=== PATIENT | male | born 1955 | race Hispanic/Latino ===

== ENCOUNTER 2019-11-04 08:43 | Emergency (ER) | payer OTHER, SELFPAY ==
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
[2019-11-04 09:04] VITALS: BP 150/96; PULSE 81; RESP 16; TEMP 36.7; O2SAT 81
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
== END 2019-11-04 10:05 | disposition home or self-care (01) ==
PROVIDERS: Emergency Provider Nurse Practitioner
DX: M54.6 Pain in thoracic spine (principal); I10 Essential (primary) hypertension; J45.909 Unspecified asthma, uncomplicated; F17.210 Nicotine dependence, cigarettes, uncomplicated
CPT/HCPCS: 72072; 99213; G0463

== ENCOUNTER 2019-12-17 09:00 | Outpatient (RCR) | payer OTHER, SELFPAY ==
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
--- NOTE | 2019-12-03 10:19 | PCPTNOTE ---
Patient called & cancelled scheduled appointment this date due to no transportation.
--- NOTE | 2019-12-07 08:14 | PCPTNOTE ---
Patient did not show up for scheduled appointment this date. Called and left message regarding no show.
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
== END 2019-12-21 13:15 | disposition home or self-care (01) ==
LOC: ANHPT 09:00
PROVIDERS: PCP Family Medicine; Visit Provider Family Medicine
DX: M79.10 Myalgia, unspecified site (principal)
CPT/HCPCS: 97014; 97110; 97140; 97162; G0283

== ENCOUNTER 2020-07-13 08:27 | Emergency (ER) | payer SELFPAY ==
[2020-07-13] VITALS (11 sets, daily range): BP systolic 119–135; BP diastolic 69–95; PULSE 85–100; RESP 18–34; TEMP 36.6; O2SAT 95–100
--- NOTE | ~2020-07-13 | XR_ITS ---
EXAMINATION: XR chest 1V portable DATE: 07/13/2020 09:22 INDICATION: Shortness of breath. TECHNIQUE: A single frontal view of the chest was obtained. COMPARISON: Thoracic spine radiographs 11/04/2019 FINDINGS: There are lucencies in the lungs, consistent with emphysema. No pneumonia, pleural effusion , pneumothorax. The heart size is normal. IMPRESSION: 1. Emphysema. Reviewed, dictated and finalized at location A. RESOURCE SPECIALIST IMPRESSION: 1. Emphysema.
--- NOTE | 2020-07-13 08:33 | ECG_ITS ---
Measurements Intervals [place] Rate: 96 P: 72 ID: 158 QRS: 66 QRSD: 98 T: 51 QT: 326 QTc: 413 Interpretive Statements SINUS RHYTHM PEAKED T WAVES- CONSIDER HYPERKALEMIA OR ISCHEMIA ABNORMAL ECG Electronically Signed On 07-13-2020 9:59:24 ROOFER APPLICATOR by Rolf Fry D.O.
--- NOTE | 2020-07-13 08:33 | ED.SOB ---
HPI - SOB/Dyspnea General Chief Complaint: Shortness of Breath/Dyspnea Stated Complaint: SOB Source: patient and EMS Mode of arrival: EMS Limitations: no limitations History of Present Illness HPI Narrative: 65 years old male presents with shortness of breath on exertion for the last few days. Patient ran out of his albuterol treatment 2 to 3 days ago, could not get a refill, went to urgent care then referred to our emergency room. Patient denies any fever, chills, nausea, vomiting, chest pain, history of COVID-19 or exposure to anybody with COVID-19. Patient still working and is telling me nobody at work have COVID-19 infection Related Data Home Medications Medication Instructions Recorded Confirmed albuterol sulfate 2 puff INHALATION Q4-6H 11/04/19 11/04/19 carvedilol 25 mg DAILY 11/04/19 11/04/19 clopidogrel 75 mg DAILY 11/04/19 11/04/19 lisinopril 10 mg DAILY 11/04/19 11/04/19 tamsulosin 0.4 mg PO DAILY 11/04/19 11/04/19 umeclidinium [Incruse Ellipta] 2 inh INHALATION DAILY 11/04/19 11/04/19 Allergies Allergy/AdvReac Type Severity Reaction Status Date / Time No Known Allergies Allergy Unknown Verified 03/18/15 17:10 Review of Systems Review of Systems: Narrative: CONSTITUTIONAL: Denies fever, chills, or sweats. EYES: Denies visual changes, redness, or discharge. ENT: Denies rhinorrhea, congestion, sore throat, or otalgia. CARDIOVASCULAR: Denies chest pain, palpitations, or edema. RESPIRATORY: Denies cough or dyspnea. GASTROINTESTINAL: Denies abdominal pain, nausea, vomiting, or diarrhea. GENITOURINARY: Denies dysuria or hematuria. SKIN: Denies rash or itching. MUSCULOSKELETAL: Denies back pain, joint pain, or myalgia. NEUROLOGIC: Denies headache, numbness, or weakness. PSYCHIATRIC: Denies anxiety or depression. [facility] Family History Family History Other Cancer Hypertension Social History Social History Smoking packs per day: 0.25 Smoking cigarettes per day: 5.0 Smoking status: Current every day smoker Alcohol intake: current Drinks per week: 3 Gender identity (if verbalized by the patient): Male Exam Narrative: Exam Narrative: General appearance: Well-developed, well-nourished Skin: Normal color Head: Normocephalic, nontraumatic Eyes: Clear conjunctiva ENT: Oropharynx normal, ears normal, nose normal Neck: Supple, nontender Chest and respiratory: Marked diminution of air entry bilaterally, fine wheezing bilaterally Heart: Regular rate/rhythm Abdomen: Soft, nontender, no organomegaly, quiet bowel sounds Vascular: Normal peripheral pulses, normal capillary refill. Musculoskeletal: Normal range of motion, nontender back Neurologic: Alert and oriented ?3, [employer]ITION [employer] WORKER is normal as tested, no gross motor deficit Course Course Emergency Course: Stable/improving Vital Signs Vital signs: Vital Signs Temperature 36.6 C 07/13/20 08:25 Pulse Rate 100 07/13/20 08:25 Respiratory Rate 20 07/13/20 08:25 Blood Pressure 119/71 07/13/20 08:25 Pulse Oximetry 100 07/13/20 08:25 Temperature 36.6 C 07/13/20 08:25 Pulse Rate 93 07/13/20 09:00 Respiratory Rate 20 07/13/20 09:00 Blood Pressure 119/71 07/13/20 08:25 Pulse Oximetry 100 07/13/20 08:25 MDM - SOB/Dyspnea MDM Narrative Medical decision making narrative: Shortness of breath on exertion, ran out of nebulizer treatment, is still a smoker. Labs, chest x-ray, ABG on room air ordered. Albuterol, Atrovent, Solu-Medrol ordered. Further plan to follow Work-up showed leukocytosis, patient reports a lot of stress lately, the leuko
[2020-07-13] MEDS: ALBUTEROL SULFATE NEB 2.5 MG/0.5 ML INH 5 MG INHALATION (08:50)
[2020-07-13] MEDS: IPRATROPIUM BR 0.02% INH SOLN 0.5 MG/2.5 ML VIAL INHALATION (08:50)
[2020-07-13] MEDS: methylPREDNISolone SOD SUCC 125 MG VIAL IV PUSH (08:51)
[2020-07-13 09:03] LABS: Basophils Absolute Auto 0.1 K/mm3 (0.0-0.1); Basophils Percent Auto 0.3 % (0.2-1.2); Hematocrit 39.3 % (42.0-52.0); Hemoglobin 13.1 g/dL (14.0-18.0); Immature Granulocyte Absolute 0.19 K/mm3 (0.00-0.031); Immature Granulocyte Percent A 0.9 % (0-0.5); Lymphocytes Absolute Auto 1.22 K/mm3 (0.9-3.2); Mean Corpuscular HGB Conc 33.3 g/dl (32-36); Mean Corpuscular Hemoglobin 30.5 pg (26-34); Mean Corpuscular Volume 91.6 fl (80-100); Mean Platelet Volume 9.9 fl (7.4-10.4); Monocytes Absolute Auto 1.7 K/mm3 (0.1-0.6); Monocytes Percent Auto 8.2 % (2.6-8.5); Neutrophils Absolute Auto 17.2 K/mm3 (1.3-6.7); Neutrophils Percent Auto 84.6 % (45.5-73.1); Platelet Count Result 194 k/mm3 (150-375); Red Blood Count 4.29 M/mm3 (4.6-6.20); Red Cell Distribution Width 13.7 % (11.5-14.5); White Blood Count 20.3 K/mm3 (4.5-10.0)
[2020-07-13 09:04] LABS: Alveolar/Arterial O2 Gradient 27.2 mmHg; Base Excess ABG 0.8 mEq/l (+/-2.0); Fractional Inspired Oxygen 21 %; HCO3 ABG 25.5 mEq/l (22.0-26.0); Modified Allen's Test Pass; Oxygen Content ABG 17.9 %vol (16.0-22.0); PCO2 ABG 40.7 mmHg (35.0-45.0); PO2 ABG 73.8 mmHg (80.0-100.0); PO2 FiO2 Ratio Arterial Blood 3.51 %; Site Drawn LEFT RADIAL; Total Hemoglobin 13.7 g/dL (12.0-18.0); pH ABG 7.414 (7.350-7.450)
[2020-07-13 09:05] LABS: Device ROOM AIR
[2020-07-13 09:18] LABS: Alanine Aminotransferase 15 U/L (4-50); Albumin Level 3.8 g/dL (3.5-5.1); Alkaline Phosphatase 91 U/L (38-126); Anion Gap 7 mmol/L (8-16); Aspartate Amino Transferase 21 U/L (17-59); Bilirubin,Total 0.6 mg/dL (0.2-1.3); Blood Urea Nitrogen 17 mg/dL (9-20); Calcium 8.6 mg/dL (8.4-10.2); Carbon Dioxide 26 mmol/L (22-30); Chloride 107 mmol/L (98-107); Estimated CRCL calculation 43 ml/min; Estimated Glomerular Filt Rate > 60; Glucose 119 mg/dL (75-110); Magnesium 2.1 mg/dL (1.6-2.3); Potassium 3.7 mmol/L (3.4-5.0); Sodium 140 mmol/L (137-145)
[2020-07-13 09:30] LABS: NT Pro B Type Natriuretic Pept 261 PG/ML (5-100); Troponin I < 0.012 ng/mL (0.000-0.034)
== END 2020-07-13 10:59 | disposition home or self-care (01) ==
PROVIDERS: Emergency Provider Emergency Medicine
DX: J44.1 Chronic obstructive pulmonary disease with (acute) exacerbation (principal); F17.210 Nicotine dependence, cigarettes, uncomplicated; D72.829 Elevated white blood cell count, unspecified
CPT/HCPCS: 36415; 36600; 71045; 80053; 82805; 83735; 83880; 84484; 85025; 93005; 94640; 96374; 99284; J2930

== ENCOUNTER 2021-03-02 13:02 | Emergency (ER) | payer SELFPAY ==
--- NOTE | 2021-03-02 13:03 | ED.GENADULT ---
HPI - General Adult General Chief complaint: Shortness of Breath/Dyspnea Stated complaint: Inhaler Refill Time Seen by Provider: 03/02/21 13:23 Source: patient and RN notes reviewed Mode of arrival: ambulatory Limitations: no limitations History of Present Illness HPI narrative: 53-[id number]-[age]ry-year-old male presents with concern for asthma medication refill. He reports he is retired, no longer has medical insurance. He reports he has not taken his daily medications for over a year, including medications for blood thinning after having cardiac stents, hypertension, and asthma. Reports he used the last of his albuterol inhaler this morning. Reports his wheezing and shortness of breath symptoms this morning were relieved with the inhaler however his symptoms are starting to return. MD complaint: Medication refill Related Data Home Medications Medication Instructions Recorded Confirmed albuterol sulfate 2 puff INHALATION Q4-6H 11/04/19 11/04/19 carvedilol 25 mg DAILY 11/04/19 11/04/19 lisinopril 10 mg DAILY 11/04/19 11/04/19 tamsulosin 0.4 mg PO DAILY 11/04/19 11/04/19 umeclidinium [Incruse Ellipta] 2 inh INHALATION DAILY 11/04/19 11/04/19 Allergies Allergy/AdvReac Type Severity Reaction Status Date / Time No Known Allergies Allergy Unknown Verified 03/02/21 13:24 Review of Systems Review of Systems: CONSTITUTIONAL: Denies malaise, chills, sweats, or fever. CARDIOVASCULAR: Denies chest pain, palpitations, or edema. RESPIRATORY: Reports cough, wheezing, occasional dyspnea. MUSCULOSKELETAL: Denies myalgia. NEUROLOGIC: Reports occasional headache. All systems reviewed & are unremarkable except as noted in HPI and below [facility] Family History Family History Other Cancer Hypertension Social History Social History Smoking packs per day: 0.25 Smoking cigarettes per day: 5.0 Smoking status: Current every day smoker Alcohol intake: current Drinks per week: 3 Gender identity (if verbalized by the patient): Male Comments At time of signature, agree with nursing past medical, surgical, social and family history. There is no relevant family history pertinent to the presenting complaint Exam Narrative: GENERAL: Well-appearing, well-nourished, and in no acute distress. HEAD: Normocephalic, atraumatic. EYES: PERRLA, sclera clear ENT: Nares clear. Mucous membranes moist. NECK: Supple CHEST: No respiratory distress. Clear to auscultation. Aeration fair. No bony deformities, no asymmetry. Speaks in full sentences. HEART: Regular rate and rhythm. No murmur heard. Normal peripheral pulses. SKIN: Warm, dry, no visible rash. NEURO: Alert and oriented x3. PSYCH: Normal mood and affect Course Course Emergency Course: Discussed with patient importance of finding a primary care doctor to get further refills of his asthma medications as well as his blood thinner and hypertension medications. Offered to give patient an albuterol neb treatment today, due to less than optimal aeration bilaterally, patient refuses treatment today. Reports he will mushroom picker the solution from the pharmacy ended treatment at home. Patient is aware of diagnosis, understands and agrees to treatment plan. Anticipatory guidance given. Patient agrees to follow-up as directed and is aware of reasons to seek care at the emergency department. Portions of this record may have been created with voice recognition software Vital Signs Vital signs: Vital Signs Temperature 97.4 F L 03/02/21 13:10 Pulse Rate 106 H 03/02/21 13:10 Respiratory Rate 16 03/02/21 13:10 Blood Pressure 156/93 H 03/02/21 13:10 Pulse Oximetry 97 03/02/21 13:10 Temperature 97.4 F L 03/02/21 13:10 Pulse Rate 106 H 03/02/21 13:10 Respiratory Rate 16 03/02/21 13:10 Blood Pressure 156/93 H 03/02/21 13:10 Pulse Oximetry 97 03/02/21 13:10 Reviewed. Gosia
[2021-03-02 13:10] VITALS: BP 156/93; PULSE 106; RESP 16; TEMP 36.3; O2SAT 97
== END 2021-03-02 13:36 | disposition home or self-care (01) ==
PROVIDERS: Emergency Provider Nurse Practitioner
DX: Z76.0 Encounter for issue of repeat prescription (principal); F17.210 Nicotine dependence, cigarettes, uncomplicated; Z95.5 Presence of coronary angioplasty implant and graft; I10 Essential (primary) hypertension; J45.909 Unspecified asthma, uncomplicated
CPT/HCPCS: 99211; G0463

== ENCOUNTER 2021-06-25 08:25 | Emergency (ER) | payer MEDICARE, SELFPAY ==
--- NOTE | 2021-06-25 08:28 | ED.URI ---
HPI - URI/Sore Throat General Chief Complaint: Upper Respiratory Infection Stated Complaint: Shortness of Breath Time Seen by Provider: 06/25/21 08:44 Source: patient, RN notes reviewed and old records reviewed Mode of arrival: ambulatory Limitations: no limitations History of Present Illness HPI Narrative: 66-year-old male presents to the [facility] with shortness of breath, left-sided chest pain, hypertension with headache. States he has been out of his medication for a couple of weeks. Tried getting in with [facility] in [place] and reports that they canceled his appointment on him. Has a history of hypertension, emphysema MD elicited complaint: cough Related Data Home Medications Medication Instructions Recorded Confirmed albuterol sulfate 2 puff INHALATION Q4-6H 11/04/19 11/04/19 carvedilol 25 mg DAILY 11/04/19 11/04/19 lisinopril 10 mg DAILY 11/04/19 11/04/19 tamsulosin 0.4 mg PO DAILY 11/04/19 11/04/19 umeclidinium [Incruse Ellipta] 2 inh INHALATION DAILY 11/04/19 11/04/19 Allergies Allergy/AdvReac Type Severity Reaction Status Date / Time No Known Allergies Allergy Unknown Verified 06/25/21 09:23 Review of Systems Review of Systems: All systems reviewed & are unremarkable except as noted in HPI and below Constitutional: Constitutional: Reports no additional constitutional complaints, Denies chills, Denies fever(s) and Denies headache(s) Eyes: Eyes: Reports no additional eye complaints ENT: Reports as per HPI, Denies vertigo, Denies dizziness, Denies headache(s), Denies nasal congestion and Denies sore throat Cardiovascular: Cardiovascular: Reports as per HPI, Reports chest pain, Denies syncope, Denies rapid heart rate and Denies dyspnea Respiratory: Respiratory: Reports no additional respiratory complaints, Denies cough, Reports dyspnea and Reports wheezing Gastrointestinal: Gastrointestinal: Reports no additional gastrointestinal complaints, Denies abdominal pain, Denies diarrhea, Denies nausea and Denies vomiting Musculoskeletal: Musculoskeletal: Reports no additional musculoskeletal complaints and Denies numbness Integumentary/Breasts: Skin/Breast: Reports system reviewed and no additional complaints, except as docu Neurologic: Reports as per HPI, Denies vertigo, Denies dizziness, Denies syncope, Reports headache(s), Denies focal weakness and Denies numbness Psychiatric: Psychiatric: Reports no additional psychiatric complaints Allergic/Immunologic: Allergic/Immunologic: Reports no additional allergic/immunologic complaints and Denies wheezing PMFSH Past Medical History Medical History Asthma Emphysema/COPD HTN (hypertension) PAD (peripheral artery disease) Tobacco abuse Family History Family History Other Cancer Hypertension Social History Social History Smoking packs per day: 0.25 Smoking cigarettes per day: 5.0 Smoking status: Current every day smoker Alcohol intake: current Drinks per week: 3 Gender identity (if verbalized by the patient): Male Comments At the time of my signature, I reviewed and agree with the nursing past medical, surgical, social, and family history. There is no relevant family history pertinent to the patient complaint. Exam Const: General: cooperative, well developed, alert, acute distress moderate and respiratory and ill appearing chronically Nutritional Appearance: well nourished Orientation/consciousness: patient oriented x3 Limitations: no limitations HENMT: Head: normal to inspection Ears: external ears normal Eyes: Conjunctivae: conjunctivae normal Pupils: Equal, round and reactive pupils present Neck: Neck: normal visual inspection, no lymphadenopathy and no meningeal signs Chest: Chest palpation & inspection: normal inspection of the chest Resp: Effort &
[2021-06-25 08:40] VITALS: BP 204/122; PULSE 99; RESP 24; TEMP 36.7; O2SAT 98
[2021-06-25] MEDS: ALBUTEROL SULFATE NEB 2.5 MG/3 ML INH INHALATION (08:45)
[2021-06-25] MEDS: IPRATROPIUM BR 0.02% INH SOLN 0.5 MG/2.5 ML VIAL INHALATION (08:45)
--- NOTE | 2021-06-25 08:51 | ECG_ITS ---
Measurements Intervals [place] Rate: 97 P: 60 DC: 148 QRS: 63 QRSD: 100 T: 50 QT: 355 QTc: 451 Interpretive Statements SINUS RHYTHM BASELINE ARTIFACT- II, III, AVR, AVL, AVF, V1-V2, V4-V6 NORMAL ECG Electronically Signed On 06-25-2021 9:26:35 COTTON FACTOR by Rolf Fry D.O.
== END 2021-06-25 09:00 | disposition short-term general hospital (02) ==
PROVIDERS: Emergency Provider Nurse Practitioner
DX: I10 Essential (primary) hypertension (principal); J45.41 Moderate persistent asthma with (acute) exacerbation; F17.210 Nicotine dependence, cigarettes, uncomplicated; J44.9 Chronic obstructive pulmonary disease, unspecified; I73.9 Peripheral vascular disease, unspecified
CPT/HCPCS: 93005; 94640; 99215; G0463

== ENCOUNTER 2021-06-25 09:17 | Emergency (ER) | payer MEDICARE, SELFPAY ==
[2021-06-25] VITALS (32 sets, daily range): BP systolic 136–215; BP diastolic 86–124; PULSE 66–106; RESP 15–22; TEMP 37; O2SAT 94–100
--- NOTE | ~2021-06-25 | XR_ITS ---
EXAMINATION: XR chest 2V EXAM DATE: 06/25/2021 09:39 INDICATION: Shortness of breath, COUGH, HX: HTN, ASTHMA, COPD TECHNIQUE: Frontal and lateral projections of the chest obtained and reviewed. Comparison is made to prior examination from 07/13/2020. FINDINGS: Moderate chronic hyperinflation. No confluent consolidation, pneumothorax or pleural effus ion suspected. Cardiomediastinal silhouette is normal. There are cholecystectomy clips. IMPRESSION: Hyperinflation. Reviewed, dictated and finalized at location [facility] IMPRESSION: Hyperinflation.
--- NOTE | 2021-06-25 09:24 | ECG_ITS ---
Measurements Intervals [place] Rate: 91 P: 68 KS: 164 QRS: 74 QRSD: 97 T: 73 QT: 352 QTc: 435 Interpretive Statements SINUS RHYTHM NORMAL ECG Electronically Signed On 06-25-2021 9:27:30 MANAGER CASINO by Rolf Fry D.O.
--- NOTE | 2021-06-25 09:28 | ED.GENADULT ---
HPI - General Adult General Chief complaint: Shortness of Breath/Dyspnea Stated complaint: WHEEZING,DIFFICULTY BREATHING Time Seen by Provider: 06/25/21 09:27 History of Present Illness HPI narrative: Patient is a 66-year-old male with history of CAD, COPD, hypertension who comes to the ED today complaining of shortness of breath. Patient reports he has been short of breath for a little over 2 weeks, pretty much ever since he ran out of his home inhalers. He is also been having a frontal headache recently. Has a chronic cough. He denies any fevers, lower extremity edema or any other concerns. He does still smoke cigarettes. Unable to get his medications refilled because of financial constraints. Received a neb treatment in route by EMS and is feeling better. Related Data Home Medications Medication Instructions Recorded Confirmed albuterol sulfate 2 puff INHALATION Q4-6H 11/04/19 11/04/19 carvedilol 25 mg DAILY 11/04/19 11/04/19 lisinopril 10 mg DAILY 11/04/19 11/04/19 tamsulosin 0.4 mg PO DAILY 11/04/19 11/04/19 umeclidinium [Incruse Ellipta] 2 inh INHALATION DAILY 11/04/19 11/04/19 Allergies Allergy/AdvReac Type Severity Reaction Status Date / Time No Known Allergies Allergy Unknown Verified 06/25/21 09:23 Review of Systems Constitutional: Constitutional: Reports as per HPI, Denies fever(s), Denies night sweats and Denies weakness Cardiovascular: Cardiovascular: Denies chest pain, Denies edema, Denies leg edema, Denies dyspnea and Denies orthopnea Respiratory: Respiratory: Reports cough and Reports dyspnea Gastrointestinal: Gastrointestinal: Denies abdominal pain, Denies constipation, Denies diarrhea, Denies nausea and Denies vomiting Musculoskeletal: Musculoskeletal: Denies abnormal gait, Denies back pain, Denies numbness and Denies tingling Neurologic: Denies Abnormal speech present, Denies abnormal gait, Denies numbness, Denies tingling and Denies weakness Psychiatric: Psychiatric: Denies homicidal ideation and Denies suicidal ideation [facility] Past Medical History Medical History Asthma Emphysema/COPD HTN (hypertension) PAD (peripheral artery disease) Tobacco abuse Family History Family History Other Cancer Hypertension Social History Social History Smoking packs per day: 0.25 Smoking cigarettes per day: 5.0 Smoking status: Current every day smoker Alcohol intake: current Drinks per week: 3 Gender identity (if verbalized by the patient): Male Exam Const: General: cooperative, healthy appearing, comfortable, no acute distress, well developed, alert, awake and Physically active Orientation/consciousness: patient oriented x3 Other: Well-appearing, no distress HENMT: Head: normal to inspection, normocephalic and atraumatic Ears: external ears normal General nose exam: Normal external nose present Eyes: Pupils: Equal, round and reactive pupils present EOM: EOMs intact bilaterally Neck: Neck: normal visual inspection Chest: Chest palpation & inspection: normal inspection of the chest and no tenderness Resp: Effort & Inspection: normal respiratory effort and able to speak in complete sentences Auscultation: diminished lung sounds Other: Lung sounds slightly distant throughout. A few scattered wheezes throughout. There is no rhonchi or crackles or rales. Cardio: Rate: regular rate Rhythm: regular rhythm GI: Inspection: normal to inspection GI Palp: No abdominal tenderness : General: Yes no CVA tenderness Back/Spine/Pelvis: Back: no CVA tenderness Skin: General skin exam: normal color and no rashes or lesions noted Lesions: no lesions Neuro: General: patient oriented x3, no focal motor deficits and CN's II-XI intact bilaterally Cranial nerves: Yes Equal, round and reactive pupils present Speech: No Abnormal speech pr
[2021-06-25 09:39] LABS: Basophils Absolute Auto 0.1 K/mm3 (0.0-0.1); Basophils Percent Auto 0.6 % (0.2-1.2); Eosinophils Absolute Auto 0.1 K/mm3 (0-0.3); Eosinophils Percent Auto 1.2 % (0-4.4); Hematocrit 47.3 % (42.0-52.0); Hemoglobin 15.9 g/dL (14.0-18.0); Immature Granulocyte Absolute 0.02 K/mm3 (0.00-0.031); Immature Granulocyte Percent A 0.3 % (0-0.5); Lymphocytes Percent Auto 24.4 % (18.3-44.2); Mean Corpuscular HGB Conc 33.6 g/dl (32-36); Mean Corpuscular Hemoglobin 30.5 pg (26-34); Mean Corpuscular Volume 90.6 fl (80-100); Monocytes Absolute Auto 0.7 K/mm3 (0.1-0.6); Monocytes Percent Auto 9.3 % (2.6-8.5); Neutrophils Percent Auto 64.2 % (45.5-73.1); Platelet Count Result 252 k/mm3 (150-375); Red Blood Count 5.22 M/mm3 (4.6-6.20); Red Cell Distribution Width 12.8 % (11.5-14.5); White Blood Count 7.8 K/mm3 (4.5-10.0)
[2021-06-25 09:49] LABS: Alanine Aminotransferase 21 U/L (4-50); Albumin Level 4.2 g/dL (3.5-5.1); Alkaline Phosphatase 95 U/L (38-126); Anion Gap 9 mmol/L (8-16); Aspartate Amino Transferase 27 U/L (17-59); Bilirubin,Total 0.3 mg/dL (0.2-1.3); Blood Urea Nitrogen 24 mg/dL (9-20); Calcium 9.4 mg/dL (8.4-10.2); Carbon Dioxide 28 mmol/L (22-30); Chloride 104 mmol/L (98-107); Estimated Glomerular Filt Rate > 60; Glucose 101 mg/dL (65-110); Potassium 4.1 mmol/L (3.4-5.0); Sodium 141 mmol/L (137-145)
[2021-06-25] MEDS: ALBUTEROL SULFATE NEB 2.5 MG/3 ML INH 1.25 MG INHALATION (10:24)
[2021-06-25] MEDS: lisinopriL 10 MG TABLET PO (10:33)
[2021-06-25] MEDS: carvediloL 25 MG TABLET PO (10:33)
== END 2021-06-25 13:18 | disposition home or self-care (01) ==
PROVIDERS: Emergency Provider Emergency Medicine
DX: J44.1 Chronic obstructive pulmonary disease with (acute) exacerbation (principal); I25.10 Atherosclerotic heart disease of native coronary artery without angina pectoris; I10 Essential (primary) hypertension; F17.210 Nicotine dependence, cigarettes, uncomplicated; I73.9 Peripheral vascular disease, unspecified
CPT/HCPCS: 36415; 71046; 80053; 85025; 93005; 94640; 96374; 99284; A9270; J2930

== ENCOUNTER 2021-10-29 08:30 | Inpatient (IN) | payer MEDICARE, MEDICAID, SELFPAY ==
[2021-10-29] VITALS (19 sets, daily range): BP systolic 93–168; BP diastolic 38–86; PULSE 71–91; RESP 18–30; TEMP 36.1–37.1; O2SAT 94–99; BMI 25.8
--- NOTE | ~2021-10-29 | CT_ITS ---
EXAMINATION: CT abdomen pelvis wo con DATE: 10/29/2021 11:49 INDICATION: Abdominal pain TECHNIQUE: Computed tomography (CT) of the abdomen and pelvis was performed without intravenous contr ast. Automated exposure control and iterative reconstruction technique were employed. The dose-length product was 344.90 mGy-cm. COMPARISON: None FINDINGS: Multiple small centrilobular nodules with tree-in-bud pattern in both the lingula and left lower lobe consistent with endobronchial spread of disease either aspiration or pneumonia. Heart size is normal . Atherosclerotic coronary artery calcific location. No pericardial or pleural effusion. Cholecystect alejandro clips at the gallbladder fossa and likely dropped clips in the deep pelvis. Liver, spleen, pancre as, bilateral adrenal glands and left kidney are normal. 2.2 cm cyst at the lower pole of the right k idney. There is prominent colonic diverticulosis along the descending and sigmoid colon without adjac ent inflammatory change to suggest diverticulitis. Small bowel and appendix are normal. Prosthetic c alcific lesions. Wall thickening of the decompressed bladder which may relate to decompressed state. No free intraperitoneal gas or fluid. No pathologically enlarged abdominal or pelvic lymphadenopathy. 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 IMPRESSION: 1. Tree-in-bud opacities with multiple small centrilobular nodules at the lingula and left lower lobe which could represent aspiration or pneumonia. 2. Diverticulosis. 3. Wall thickening of the bladder likely due to decompressed state but would correlate with urinalysi s to exclude cystitis. Reviewed, dictated and finalized at location B. IMPRESSION: 1. Tree-in-bud opacities with multiple small centrilobular nodules at the lingu la and left lower lobe which could represent aspiration or pneumonia. 2. Diverticulosis. 3. Wall thickening of the bladder likely due to decompressed state but would co rrelate with urinalysis to exclude cystitis.
--- NOTE | ~2021-10-29 | US_ITS ---
EXAMINATION: US renal BI DATE: 10/29/2021 18:04 INDICATION: renal failure TECHNIQUE: Multiple grayscale and Doppler ultrasound images of the kidneys were obtained. COMPARISON: CT abdomen and pelvis, same date FINDINGS: The right kidney measures 11.8 x 5.8 x 5.9 cm. The left kidney measures 10.2 x 5.8 x 4.4 cm. The kidn eys demonstrate normal parenchymal echogenicity.No sonographic evidence of nephrolithiasis. 2.3 cm si mple cyst in the right kidney inferior pole. No hydronephrosis. The bladder is incompletely distended . IMPRESSION: 1. Normal renal sonogram findings. Reviewed, dictated and finalized at location K.
--- NOTE | ~2021-10-29 | XR_ITS ---
EXAMINATION: XR chest 1V portable 10/29/2021 09:40 INDICATION: Cough and shortness of breath. PROCEDURE: AP portable chest COMPARISON: 06/25/2021 FINDINGS: The lungs are clear. The cardiomediastinal silhouette is within normal limits. There are no pleural effusions. There is no pneumothorax suspected. IMPRESSION: 1: NO ACUTE CARDIOPULMONARY DISEASE. Reviewed, dictated and finalized at location A.
--- NOTE | 2021-10-29 08:40 | ECG_ITS ---
Measurements Intervals [place] Rate: 89 P: 66 [place]: 145 QRS: 67 QRSD: 99 T: 56 QT: 325 QTc: 397 Interpretive Statements SINUS RHYTHM BASELINE ARTIFACT- I, II, III, AVR, AVL, AVF NORMAL ECG Electronically Signed On 10-29-2021 8:55:54 CDT by Rolf Fry D.O.
[2021-10-29] MEDS: methylPREDNISolone SOD SUCC 125 MG VIAL IV PUSH (08:47)
--- NOTE | 2021-10-29 08:52 | ED.SOB ---
HPI - SOB/Dyspnea General Chief Complaint: Shortness of Breath/Dyspnea Stated Complaint: SOB Source: RN notes reviewed History of Present Illness HPI Narrative: Patient presents emergency department from [facility] waiting room via EMS for shortness of breath. Patient states he been progressively worse of breath for the past 1 week. States that he has had a cough has been productive of clear sputum states that he has a history of COPD and is a former smoker he denies any fevers or chills states he does have a tightness across the chest he denies any abdominal pain nausea vomiting or any other symptoms Related Data Home Medications Medication Instructions Recorded Confirmed albuterol sulfate 2 puff INHALATION Q4-6H 11/04/19 11/04/19 carvedilol 25 mg DAILY 11/04/19 11/04/19 lisinopril 10 mg DAILY 11/04/19 11/04/19 tamsulosin 0.4 mg PO DAILY 11/04/19 11/04/19 umeclidinium [Incruse Ellipta] 2 inh INHALATION DAILY 11/04/19 11/04/19 Allergies Allergy/AdvReac Type Severity Reaction Status Date / Time No Known Allergies Allergy Unknown Verified 06/25/21 09:23 Review of Systems Review of Systems: Gen.: Denies fevers or chills ENT: Denies congestion Respiratory: Dry CV: Reports chest tightness GI: Denies abdominal pain nausea, emesis or diarrhea Musculoskeletal: Denies back pain or muscle pain Neuro: Denies numbness, tingling, weakness or focal weakness Skin: Denies rash Except as documented, all other systems reviewed and negative [facility] Past Medical History Medical History Asthma Emphysema/COPD HTN (hypertension) PAD (peripheral artery disease) Tobacco abuse Family History Family History Other Cancer Hypertension Social History Social History Smoking packs per day: 0.25 Smoking cigarettes per day: 5.0 Smoking status: Current every day smoker Alcohol intake: current Drinks per week: 3 Gender identity (if verbalized by the patient): Male Exam Narrative: APPEARANCE: Moderate respiratory distress nontoxic, resting in bed HEENT: Normocephalic, atraumatic OMM RESPIRATORY: Moderate respiratory distress sitting upright speaking in short phrases wheezing throughout bilateral lung roman with decreased breath sounds in the bases CARDIOVASCULAR: Regular rate and rhythm without murmurs rubs or gallops. ABDOMINAL: Soft, nontender, nondistended, no rebound or guarding MUSCULOSKELETAl: Moves all extremities. No clubbing, cyanosis or edema. Bilateral calves soft and nontender NEURO: Awake and alert. Following commands, speech normal, no focal deficits SKIN:: Warm, dry. Normal Color PSYCHIATRIC: Normal affect/mood, Course Course Emergency Course: Following breathing treatment repeat lung exam still shows wheezing throughout bilateral lung roman Discussed with Dr Abad agrees with admission Discussed with patient and family results of workup and diagnosis. Discussed need for admission. Patient and family understand and agree to current treatment plan Vital Signs Vital signs: Vital Signs Temperature 98.8 F 10/29/21 08:35 Pulse Rate 91 10/29/21 08:35 Respiratory Rate 24 H 10/29/21 08:35 Blood Pressure 117/75 10/29/21 08:35 Pulse Oximetry 96 10/29/21 08:35 Temperature 98.8 F 10/29/21 08:35 Pulse Rate 73 10/29/21 12:01 Respiratory Rate 18 10/29/21 12:01 Blood Pressure 93/54 L 10/29/21 12:01 Pulse Oximetry 99 10/29/21 12:01 MDM - SOB/Dyspnea Lab Data Result diagrams: 10/29/21 08:54 10/29/21 08:54 Labs: Lab Results 10/29/21 10/29/21 10/29/21 Range/Units 08:48 08:54 08:54 WBC 19.8 H (4.5-10.0) K/mm3 RBC 4.80 (4.6-6.20) M/mm3 Hgb 14.6 (14.0-18.0) g/dL Hct 44.0 (42.0-52.0) % MCV 91.7 (80-100) fl MCH 30.4 (26-34) pg MCHC 33.2 (32-36) g/dl RDW
[2021-10-29 09:00] LABS: Basophils Absolute Auto 0.1 K/mm3 (0.0-0.1); Basophils Percent Auto 0.4 % (0.2-1.2); Hemoglobin 14.6 g/dL (14.0-18.0); Immature Granulocyte Absolute 0.15 K/mm3 (0.00-0.031); Immature Granulocyte Percent A 0.8 % (0-0.5); Lymphocytes Absolute Auto 0.86 K/mm3 (0.9-3.2); Lymphocytes Percent Auto 4.3 % (18.3-44.2); Mean Corpuscular HGB Conc 33.2 g/dl (32-36); Mean Corpuscular Hemoglobin 30.4 pg (26-34); Mean Corpuscular Volume 91.7 fl (80-100); Mean Platelet Volume 9.6 fl (7.4-10.4); Monocytes Absolute Auto 1.8 K/mm3 (0.1-0.6); Monocytes Percent Auto 8.9 % (2.6-8.5); Neutrophils Percent Auto 85.6 % (45.5-73.1); Platelet Count Result 252 k/mm3 (150-375); Red Cell Distribution Width 13.9 % (11.5-14.5); White Blood Count 19.8 K/mm3 (4.5-10.0)
[2021-10-29] MEDS: IPRATROPIUM BR 0.02% INH SOLN 0.5 MG/2.5 ML VIAL INHALATION ×2 (09:00→20:19)
[2021-10-29] MEDS: ALBUTEROL SULFATE NEB 2.5 MG/3 ML INH 5 MG INHALATION ×3 (09:00→20:19)
[2021-10-29 09:14] LABS: Alanine Aminotransferase 16 U/L (6-50); Alkaline Phosphatase 97 U/L (38-126); Anion Gap 9 mmol/L (8-16); Aspartate Amino Transferase 26 U/L (17-59); Bilirubin,Total 0.8 mg/dL (0.2-1.3); Blood Urea Nitrogen 21 mg/dL (9-20); Calcium 8.9 mg/dL (8.4-10.2); Carbon Dioxide 24 mmol/L (22-30); Chloride 103 mmol/L (98-107); Estimated CRCL calculation 35 ml/min; Estimated Glomerular Filt Rate 44; Glucose 132 mg/dL (65-110); Lactic Acid Reflex 1.4 mmol/L (0.7-2.0); Potassium 4.4 mmol/L (3.4-5.0); Sodium 136 mmol/L (137-145)
[2021-10-29 09:17] LABS: INR 1.2; Prothrombin Time 14.7 Seconds (11.1-14.7)
[2021-10-29 09:17] LABS: Base Excess ABG -3.4 mEq/l (+/-2.0); Carboxyhemoglobin 0.7 % THb (0-2.0); Fractional Inspired Oxygen 21 %; HCO3 ABG 20.1 mEq/l (22.0-26.0); Methemoglobin ABG 0.1 %THb (0-1.5); Oxygen Content ABG 18.3 %vol (16.0-22.0); Oxygen Saturation ABG 93.8 % (95.0-100.0); Oxyhemoglobin 92.9 % THb (90.0-100.0); PCO2 ABG 31.7 mmHg (35.0-45.0); PO2 ABG 66.8 mmHg (80.0-100.0); PO2 FiO2 Ratio Arterial Blood 3.18 %; Reduced Hemoglobin 6.3 %THb (0-5.0); pH ABG 7.419 (7.350-7.450)
[2021-10-29 09:25] LABS: NT Pro B Type Natriuretic Pept 419 pg/mL (5-100); Troponin I < 0.012 ng/mL (0.000-0.034)
[2021-10-29 09:29] LABS: SARS-CoV-2 RNA PCR Negative
[2021-10-29 11:17] LABS: Appearance Urine Cloudy (Clear); Bilirubin Urine 1+ (Negative); Glucose Urine UA Negative (Negative); Ketones Urine Trace mg/dL (Negative); Leukocyte Esterase Ur Trace LEU/UL (Negative); Nitrate Urine Negative (Negative); Protein Urine 2+ mg/dL (Negative); Specific Grav Ur 1.025 (1.001-1.035)
[2021-10-29 11:18] LABS: Add Urine Microscopic? YES; Blood Urine Trace-Intact (Negative); Color Urine Dark Yellow (Yellow)
[2021-10-29 11:21] LABS: Bacteria Urine 4+ /hpf; Mucus Urine Heavy /lpf; Squamous Epithelial Cell Urine Rare /hpf (Few); WBC Urine 31-50 /hpf
[2021-10-29] MEDS: SODIUM CHLORIDE 0.9% IV 1,000 ML 999 ML IV CONT (11:37)
[2021-10-29] MEDS: SODIUM CHLORIDE 0.9% IV 1,000 ML 80 ML IV CONT ×2 (13:04→23:39)
[2021-10-29] MEDS: methylPREDNISolone SOD SUCC 125 MG VIAL 60 MG IV PUSH ×3 (14:14→23:40)
--- NOTE | 2021-10-29 14:45 | PM.IMHP ---
H&P: HPI History of Present Illness Date/Time: 10/29/21 14:45 Chief Complaint: Shortness of breath. Narrative: This is a pleasant 66-year-old male smoker with coronary artery disease, hypertension, and chronic obstructive pulmonary disease who presented to the emergency department via EMS from his doctor's office for evaluation of shortness of breath. He and several family members have had URI symptoms for the past 1 week. Over the past 2 days he has felt increasingly worse with headache, cough productive of white phlegm, decreased appetite, nausea, a couple of loose stools, and sweats. He has been coughing so hard that he has having pain in his chest and he has had several episodes of post-tussive emesis due to coughing jags. He has not been using any [id number] medication. He does have a nebulizer machine at home however has been out of the vials and was not able to give himself a treatment despite significant wheezing. He has gotten progressively more dyspneic on lesser and lesser exertion and he was seen by his doctor today who sent him to the ER for further treatment and evaluation. He has been afebrile since arrival. White blood cell count was elevated at 19.8. Chest x-ray showed no acute cardiopulmonary disease. CT of the abdomen pelvis showed findings in the lingula and left lower lobe which could represent aspiration or pneumonia and thickening of the bladder wall was also noted. With further questioning, he denies dysphagia and concerns for aspiration. He denies urinary symptoms though he has occasionally coughs so hard that he had a small amount of leakage. He denies fever, sore throat, exertional chest pain, pleuritic pain, dysuria, orthopnea, PND, and edema. Review of Systems Review of Systems: Twelve systems were reviewed and are negative except for as per HPI. [facility] Past Medical History Medical History (Updated 10/29/21 @ 23:12 by Aide Vela PA-C) Asthma Congestive heart failure Coronary artery disease Dyslipidemia Emphysema/COPD Gastroesophageal reflux disease Hypertension Tobacco abuse Surgical History Surgical History (Updated 10/29/21 @ 16:12 by Aide Vela PA-C) History of cardiac catheterization History of cholecystectomy History of coronary artery stent placement Family History Family History Other Cancer Hypertension Social History Social History (Updated 10/29/21 @ 16:13 by Aide Vela PA-C) Social History: Surrogate decision maker: Fadia Hirsch, spouse. Code status: Full code. Smoking packs per day: 0.25 Smoking cigarettes per day: 5.0 Smoking status: Current every day smoker Tobacco type: cigarettes Alcohol intake: current Drinks per week: 3 Substance use: never Living arrangements: with family Occupation/Education: retired Spiritual care concerns: No Meds Home Medications and Allergies Home Medications Medication Instructions Recorded Confirmed Type albuterol sulfate 2 puff INHALATION Q4-6H 11/04/19 10/29/21 History carvedilol 25 mg DAILY 11/04/19 10/29/21 History lisinopril 10 mg DAILY 11/04/19 10/29/21 History tamsulosin 0.4 mg PO DAILY 11/04/19 10/29/21 History umeclidinium [Incruse Ellipta] 2 inh INHALATION DAILY 11/04/19 10/29/21 History ipratropium-albuterol 3 ml INHALATION Q6H PRN #180 ml 06/25/21 10/29/21 Rx prednisone 50 mg PO DAILY #5 tablet 06/25/21 10/29/21 Rx Allergies Allergy/AdvReac Type Severity Reaction Status Date / Time No Known Allergies Allergy Unknown Verified 06/25/21 09:23 Vital Signs Vital Signs - 24 hr 10/29/21 08:35 10/29/21 08:40 10/29/21 08:59 Temperature 98.8 F Pulse Rate 91 89 88 Respiratory Rate 24 H 26 H Blood Pressure 117/75 Pulse Oximetry 96 10/29/21 09:15 10/29/21 09:26 10/29/21 09:38 Temperature Pulse Rate 88 76 79 Respiratory Rate 26 H 30 H 20 Blood Pressure 117/75 Pulse Oximetry 99
[2021-10-29] MEDS: guaiFENesin 600 MG/DEXTROMETHORPHAN 30 MG SR TAB 12 HR 1 TAB PO (23:39)
[2021-10-30] VITALS (18 sets, daily range): BP systolic 132–182; BP diastolic 57–87; PULSE 66–95; RESP 18–24; TEMP 35.7–36.8; O2SAT 93–97
[2021-10-30] MEDS: IPRATROPIUM BR 0.02% INH SOLN 0.5 MG/2.5 ML VIAL INHALATION ×4 (01:37→20:38)
[2021-10-30] MEDS: ALBUTEROL SULFATE NEB 2.5 MG/3 ML INH 5 MG INHALATION ×3 (01:37→20:38)
[2021-10-30] MEDS: methylPREDNISolone SOD SUCC 125 MG VIAL 60 MG IV PUSH ×4 (06:05→23:36)
[2021-10-30 06:27] LABS: Alanine Aminotransferase 15 U/L (6-50); Albumin Level 3.2 g/dL (3.5-5.1); Alkaline Phosphatase 81 U/L (38-126); Anion Gap 7 mmol/L (8-16); Aspartate Amino Transferase 21 U/L (17-59); Bilirubin,Total 0.2 mg/dL (0.2-1.3); Blood Urea Nitrogen 28 mg/dL (9-20); Calcium 8.1 mg/dL (8.4-10.2); Carbon Dioxide 18 mmol/L (22-30); Chloride 110 mmol/L (98-107); Estimated CRCL calculation 42 ml/min; Estimated Glomerular Filt Rate 55; Glucose 158 mg/dL (65-110); Magnesium 2.2 mg/dL (1.6-2.3); Potassium 4.1 mmol/L (3.4-5.0); Sodium 135 mmol/L (137-145)
[2021-10-30 06:41] LABS: Basophils Percent Auto 0.1 % (0.2-1.2); Hematocrit 37.2 % (42.0-52.0); Hemoglobin 12.5 g/dL (14.0-18.0); Immature Granulocyte Absolute 0.15 K/mm3 (0.00-0.031); Immature Granulocyte Percent A 0.7 % (0-0.5); Lymphocytes Absolute Auto 0.71 K/mm3 (0.9-3.2); Lymphocytes Percent Auto 3.5 % (18.3-44.2); Mean Corpuscular HGB Conc 33.6 g/dl (32-36); Mean Corpuscular Hemoglobin 30.9 pg (26-34); Mean Corpuscular Volume 91.9 fl (80-100); Mean Platelet Volume 10.2 fl (7.4-10.4); Monocytes Absolute Auto 0.3 K/mm3 (0.1-0.6); Monocytes Percent Auto 1.7 % (2.6-8.5); Neutrophils Absolute Auto 18.9 K/mm3 (1.3-6.7); Platelet Count Result 233 k/mm3 (150-375); Red Blood Count 4.05 M/mm3 (4.6-6.20); Red Cell Distribution Width 13.9 % (11.5-14.5); White Blood Count 20.1 K/mm3 (4.5-10.0)
[2021-10-30 07:36] LABS: Device ROOM AIR; Modified Allen's Test Pass; Site Drawn RIGHT RADIAL
[2021-10-30] MEDS: ENOXAPARIN 40 MG/0.4 ML SYRINGE SUB-Q (08:38)
[2021-10-30] MEDS: guaiFENesin 600 MG/DEXTROMETHORPHAN 30 MG SR TAB 12 HR 1 TAB PO (08:38)
[2021-10-30] MEDS: carvediloL 25 MG TABLET BY MOUTH (08:39)
[2021-10-30] MEDS: TAMSULOSIN HCL 0.4 MG CAPSULE PO (08:39)
[2021-10-30] MEDS: ALBUTEROL SULFATE NEB 2.5 MG/0.5 ML INH 5 MG (09:30)
--- NOTE | 2021-10-30 09:51 | PM.IMPN ---
Progress Note: A&P Assessment and Plan (1) Community acquired pneumonia: Code(s): J18.9 - Pneumonia, unspecified organism Status: Acute Assessment and Plan: Monitor vital signs, I&Os, neuro status and patient is a fall risk Follow WBC, serum electrolytes, temperature curves and cultures Send sputum cultures. Check urinary antigens for Legionella and pneumococcus. Oxygen via NC; wean as tolerated. Keep SpO2 greater than 88% Gentle IV fluid resuscitation Continue levofloxacin started the emergency department. Start incentive spirometry and Cornet therapy Add Mucinex DuoNeb q6H and Albuterol q2H PRN P.r.n. Tylenol, Zofran, and melatonin (2) COPD exacerbation: Code(s): J44.1 - Chronic obstructive pulmonary disease with (acute) exacerbation Status: Acute Assessment and Plan: Monitor vital signs, I&Os, neuro status and patient is a fall risk Monitor serum electrolytes, cultures and CBC Monitor Oxygen saturation, Oxygen via NC; wean oxygen as tolerated, keep SpO2 greater than 88% Send sputum cultures if possible Levaquin q24H Duonebz q6H and Albuterol q2H prn Solu-Medrol 40 mg IVq12H (3) Renal insufficiency: Code(s): N28.9 - Disorder of kidney and ureter, unspecified Status: Acute Assessment and Plan: Creatinine is 1.60 today, baseline is around 1.10. Judicious IV fluid rehydration overnight. Renal ultrasound ordered and is pending. Avoid nephrotoxic agents. (4) Abnormal urinalysis: Code(s): R82.90 - Unspecified abnormal findings in urine Status: Acute Assessment and Plan: No symptoms to suggest UTI. Urine culture pending. (5) Hypertension: Code(s): I10 - Essential (primary) hypertension Status: Acute Assessment and Plan: Blood pressures were reviewed and are stable aside from a transient low of 93/54 in the ER. Check orthostatic vital signs and monitor closely. Antihypertensives will be reviewed and resumed as appropriate. (6) Tobacco abuse: Code(s): Z72.0 - Tobacco use Status: Acute Assessment and Plan: Smoking cessation counseling provided 3 minutes . He declines the need for nicotine patch. Subjective Date/time seen: 10/30/21 09:51 Interval history: S patient is alert and oriented sitting at the side of the bed. She he reports that he will be returning to [place] next month and will require additional medications when he goes and he would like to have his respiratory status further evaluated. Patient is currently being treated for community-acquired pneumonia and COPD exacerbation. He has inspiratory and expiratory wheezes throughout bilaterally. With an elevated WBC of 20.1. He will continue on Levaquin and breathing treatments. Pending sputum cultures. He denies any acute pain, chest pain, nausea, vomiting upset stomach or diarrhea. He does endorse shortness breath with tightness. Review of Systems Review of Systems: All systems reviewed & are unremarkable except as noted in HPI and below Exam Narrative: General: Well-developed male sitting in a chair in no acute distress. Weight: 68.3 kg. BMI: 25.8. HEENT: Wearing glasses. PERRL, EOMI. Sclerae anicteric. Oral mucosa moist. Neck: Supple. No lymphadenopathy or JVD. Respiratory: Mild conversational dyspnea though he appears in no acute respiratory distress. He is speaking in 5 to 6 word sentences. Significantly diminished lung sounds throughout with inspiratory and expiratory wheezes Cardiovascular: Regular rate and rhythm with S1-S2. Gastrointestinal: Abdomen is soft, nontender, and nondistended with positive bowel sounds. Skin: Warm and dry. No rash or lesions on limited exam. Extremities: No cyanosis, clubbing, or edema. Radial and pedal pulses intact. Neurological: Alert. Cranial nerves 2-12 are grossly intact. No gross focal deficits to casual conversation. Psychiatric: Pleasant and cooperative with yarelis
[2021-10-30] MEDS: ACETAMINOPHEN 325 MG TABLET 650 MG PO (21:09)
[2021-10-30] MEDS: guaiFENesin/CODEINE (*CRX) 200/20 MG 10 ML SYRUP PO (21:09)
[2021-10-31] VITALS (19 sets, daily range): BP systolic 155–192; BP diastolic 84–102; PULSE 71–91; RESP 16–20; TEMP 35.9–36.8; O2SAT 91–98
[2021-10-31] MEDS: ALBUTEROL SULFATE NEB 2.5 MG/3 ML INH 5 MG INHALATION ×4 (02:49→21:03)
[2021-10-31] MEDS: IPRATROPIUM BR 0.02% INH SOLN 0.5 MG/2.5 ML VIAL INHALATION ×4 (02:49→21:03)
[2021-10-31] MEDS: methylPREDNISolone SOD SUCC 125 MG VIAL 60 MG IV PUSH (05:36)
[2021-10-31] MEDS: guaiFENesin/CODEINE (*CRX) 200/20 MG 10 ML SYRUP PO ×4 (05:49→21:56)
[2021-10-31] MEDS: hydrALAZINE HCL 20 MG/ML VIAL 10 MG IV PUSH ×3 (06:30→20:23)
[2021-10-31] MEDS: carvediloL 25 MG TABLET BY MOUTH (08:35)
[2021-10-31] MEDS: ENOXAPARIN 40 MG/0.4 ML SYRINGE SUB-Q (08:35)
[2021-10-31] MEDS: TAMSULOSIN HCL 0.4 MG CAPSULE PO (08:35)
--- NOTE | 2021-10-31 10:56 | P.PNIM_ITS ---
Progress Note: A&P Assessment and Plan (1) Community acquired pneumonia: Code(s): J18.9 - Pneumonia, unspecified organism <Sudha SteffSHELLEY Villeda-C - Last Filed: 10/31/21 11:09> Status: Acute <Sudha Valleshanon PA-C - Last Filed: 10/31/21 11:09> Assessment and Plan: CXR showed no acute cardiopulmonary findings, however CT abdomen/pelvis showed tree-in-bud opacities with multiple small centrilobular nodules at the lingula and left lower lobe * Continue levofloxacin * COVID-19 negative. Influenza pending. Urinary Legionella pneumococcal antigens pending * Supportive care. Bronchodilators, expectorants, incentive spirometry, cornet * Sputum cultures pending * Currently maintaining adequate oxygen saturations on room air <Sudha Aguilar PA-C - Last Filed: 10/31/21 11:09> (2) COPD exacerbation: Code(s): J44.1 - Chronic obstructive pulmonary disease with (acute) exacerbation <Sudha Aguilar PA-C - Last Filed: 10/31/21 11:09> Status: Acute <Sudha SteffTrace Aguilar PA-C - Last Filed: 10/31/21 11:09> Assessment and Plan: Patient with evidence of exacerbation on upon presentation * Improved following IV steroids * Weaned Solu-Medrol to 40 mg q8h. Continue to wean as tolerated * Leukocytosis secondary to IV steroids noted. * Continue DuoNebs * Continue home Incruse Ellipta <Sudha Aguilar PA-C - Last Filed: 10/31/21 11:09> (3) UTI (urinary tract infection): Code(s): N39.0 - Urinary tract infection, site not specified <Sudha Aguilar PA-C - Last Filed: 10/31/21 11:09> Status: Acute <Sudha Aguilar PA-C - Last Filed: 10/31/21 11:09> Assessment and Plan: UA abnormal on presentation. Urine culture with growth of >100k E coli * Continue IV Levaquin based on susceptibility report <Sudha Aguilar PA-C - Last Filed: 10/31/21 11:09> (4) Renal insufficiency: Code(s): N28.9 - Disorder of kidney and ureter, unspecified <Sudha ArtisTrace Aguilar PA-C - Last Filed: 10/31/21 11:09> Status: Acute <Sudha ValleJOHN claudioC - Last Filed: 10/31/21 11:09> Assessment and Plan: Improved. Baseline creatinine appears to be around 1.1 * Creatinine 1.3 today * Renal ultrasound showed normal kidneys with no acute findings * Improved with IV fluid rehydration. Patient tolerating p.o. intake at this time. Encourage adequate oral intake * Monitor BMP <Sudha ArtisTrace Aguilar PA-C - Last Filed: 10/31/21 11:09> (5) Hypertension: Code(s): I10 - Essential (primary) hypertension <Sudha ArtisJOHN VilledaC - Last Filed: 10/31/21 11:09> Status: Acute <Sudha JTrace Aguilar PA-C - Last Filed: 10/31/21 11:09> Assessment and Plan: Blood pressures reviewed and have been slightly elevated above target. He did have 1 transient episode of low BP on presentation. Last blood pressure 189/91 * Continue carvedilol * Hold lisinopril due to renal insufficiency. Plan to resume when creatinine has returned to baseline * P.r.n. hydralazine for systolic BP >170 * Monitor BP trends and adjust medication regimen as needed <Sudha Aguilar PA-C - Last Filed: 10/31/21 11:09> (6) Tobacco abuse: Code(s): Z72.0 - Tobacco use <Sudha Aguilar PA-C - Last Filed: 10/31/21 11:09> Status: Acute <Sudha ArtisTrace Aguilar PA-C - Last Filed: 10/31/21 11:09> Assessment and Plan: Patient smokes a quarter pack per day * He has been educated on smoking cessation * Declined nicotine patch <Sudha Aguilar PA-C - Last Filed: 10/31/21 11:09> [place]
--- NOTE | 2021-10-31 10:56 | PM.IMPN ---
Progress Note: A&P Assessment and Plan (1) Community acquired pneumonia: Code(s): J18.9 - Pneumonia, unspecified organism <Sudha ArtisTrace Leonardshanon PA-C - Last Filed: 10/31/21 11:09> Status: Acute <Sudha Valleshanon, PA-C - Last Filed: 10/31/21 11:09> Assessment and Plan: CXR showed no acute cardiopulmonary findings, however CT abdomen/pelvis showed tree-in-bud opacities with multiple small centrilobular nodules at the lingula and left lower lobe Continue levofloxacin COVID-19 negative. Influenza pending. Urinary Legionella pneumococcal antigens pending Supportive care. Bronchodilators, expectorants, incentive spirometry, cornet Sputum cultures pending Currently maintaining adequate oxygen saturations on room air <Sudha SteffTrace Aguilar PA-C - Last Filed: 10/31/21 11:09> (2) COPD exacerbation: Code(s): J44.1 - Chronic obstructive pulmonary disease with (acute) exacerbation <Sudha JTrace Aguilar, PA-C - Last Filed: 10/31/21 11:09> Status: Acute <Sudha ArtisTarce Leonardshanon, PA-C - Last Filed: 10/31/21 11:09> Assessment and Plan: Patient with evidence of exacerbation on upon presentation Improved following IV steroids Weaned Solu-Medrol to 40 mg q8h. Continue to wean as tolerated Leukocytosis secondary to IV steroids noted. Continue DuoNebs Continue home Incruse Ellipta <Sudha JTrace Aguilar, PA-C - Last Filed: 10/31/21 11:09> (3) UTI (urinary tract infection): Code(s): N39.0 - Urinary tract infection, site not specified <Sudha SteffTrace Aguilar, PA-C - Last Filed: 10/31/21 11:09> Status: Acute <Sudha SteffTrace Aguilar, PA-C - Last Filed: 10/31/21 11:09> Assessment and Plan: UA abnormal on presentation. Urine culture with growth of >100k E coli Continue IV Levaquin based on susceptibility report <Sudha Aguilar, PA-C - Last Filed: 10/31/21 11:09> (4) Renal insufficiency: Code(s): N28.9 - Disorder of kidney and ureter, unspecified <Sudha Aguilar PA-C - Last Filed: 10/31/21 11:09> Status: Acute <Sudha Aguilar PA-C - Last Filed: 10/31/21 11:09> Assessment and Plan: Improved. Baseline creatinine appears to be around 1.1 Creatinine 1.3 today Renal ultrasound showed normal kidneys with no acute findings Improved with IV fluid rehydration. Patient tolerating p.o. intake at this time. Encourage adequate oral intake Monitor BMP <Sudha Aguilar PA-C - Last Filed: 10/31/21 11:09> (5) Hypertension: Code(s): I10 - Essential (primary) hypertension <Sudha Aguilar PA-C - Last Filed: 10/31/21 11:09> Status: Acute <Sudha Aguilar PA-C - Last Filed: 10/31/21 11:09> Assessment and Plan: Blood pressures reviewed and have been slightly elevated above target. He did have 1 transient episode of low BP on presentation. Last blood pressure 189/91 Continue carvedilol Hold lisinopril due to renal insufficiency. Plan to resume when creatinine has returned to baseline P.r.n. hydralazine for systolic BP >170 Monitor BP trends and adjust medication regimen as needed <Sudha Aguilar PA-C - Last Filed: 10/31/21 11:09> (6) Tobacco abuse: Code(s): Z72.0 - Tobacco use <Sudha Aguilar PA-C - Last Filed: 10/31/21 11:09> Status: Acute <Sudha Aguilar PA-C - Last Filed: 10/31/21 11:09> Assessment and Plan: Patient smokes a quarter pack per day He has been educated on smoking cessation Declined nicotine patch <Sudha Aguilar PA-C - Last Filed: 10/31/21 11:09> Subjective Date/time seen: 10/31/21 10:56 <Sudha Aguilra PA-C - Last Filed: 10/31/21 11:09> Interval history: Date of service: 10/31/2021 Karthik Mars is a 66-year-old male with a history of CHF Mariano was CAD, COPD, asthma, hypertension, hyperlipidemia, GERD, and tobacco abuse who is seated follow-up for pneumonia and COPD exacerbation. He states that he
--- NOTE | 2021-10-31 12:55 | P.CDI_ITS ---
CDI Query Clarification Request 10/29 ER physician documented: Clinical Impression: -?COPD exacerbation, Acute renal insufficiency, Sepsis, Acute UTI, Community acquired pneumonia 10/31 Hospitalist documented: UTI (urinary tract infection): ?Code(s): N39.0 - Urinary tract infection, site not specified ?Status:?Acute ?Assessment and Plan: UA abnormal on presentation.? Urine culture with growth of >100k E coli * Continue IV Levaquin based on susceptibility report Lab/Vital sign results: Diagnosis UTI, WBC 19.8, Respiration 24, Pulse 91-95 Please clarify if diagnosis: Sepsis, has been ruled in, ruled out or undetermined
[2021-10-31] MEDS: methylPREDNISolone SOD SUCC 40 MG VIAL IV PUSH ×2 (15:18→22:42)
[2021-10-31] MEDS: CALCIUM CARBONATE (TUMS) 500 MG (200 MG ELEMENTAL) PO (21:56)
[2021-11-01] VITALS (8 sets, daily range): BP systolic 152–178; BP diastolic 83–86; PULSE 66–100; RESP 16–18; TEMP 36.4–36.5; O2SAT 95–97
[2021-11-01] MEDS: IPRATROPIUM BR 0.02% INH SOLN 0.5 MG/2.5 ML VIAL INHALATION ×2 (02:02→08:12)
[2021-11-01] MEDS: ALBUTEROL SULFATE NEB 2.5 MG/3 ML INH 5 MG INHALATION ×2 (02:02→08:12)
[2021-11-01 06:19] LABS: Hematocrit 39.3 % (42.0-52.0); Mean Corpuscular HGB Conc 33.1 g/dl (32-36); Mean Corpuscular Hemoglobin 30.2 pg (26-34); Mean Corpuscular Volume 91.4 fl (80-100); Mean Platelet Volume 9.5 fl (7.4-10.4); Platelet Count Result 270 k/mm3 (150-375); Red Cell Distribution Width 14.3 % (11.5-14.5); White Blood Count 15.7 K/mm3 (4.5-10.0)
[2021-11-01] MEDS: guaiFENesin/CODEINE (*CRX) 200/20 MG 10 ML SYRUP PO ×2 (06:30→11:22)
[2021-11-01] MEDS: methylPREDNISolone SOD SUCC 40 MG VIAL IV PUSH (06:30)
[2021-11-01 06:36] LABS: Anion Gap 4 mmol/L (8-16); Blood Urea Nitrogen 27 mg/dL (9-20); Calcium 8.2 mg/dL (8.4-10.2); Carbon Dioxide 26 mmol/L (22-30); Chloride 108 mmol/L (98-107); Estimated CRCL calculation 46 ml/min; Estimated Glomerular Filt Rate > 60; Glucose 118 mg/dL (65-110); Potassium 4.8 mmol/L (3.4-5.0); Sodium 138 mmol/L (137-145)
[2021-11-01] MEDS: ENOXAPARIN 40 MG/0.4 ML SYRINGE SUB-Q (08:05)
[2021-11-01] MEDS: carvediloL 25 MG TABLET BY MOUTH (08:05)
[2021-11-01] MEDS: TAMSULOSIN HCL 0.4 MG CAPSULE PO (08:05)
--- NOTE | 2021-11-01 09:44 | P.DS_ITS ---
DS: Admitting Diagnosis Discharge Date 11/01/2021 <Sudha Aguilar PA-C - Last Filed: 11/01/21 16:09> Admitting Diagnosis COPD exacerbation <Sudha Aguilar PA-C - Last Filed: 11/01/21 16:09> DS: Discharge Diagnosis Discharge Diagnosis (1) Community acquired pneumonia: Code(s): J18.9 - Pneumonia, unspecified organism <Sudha Aguilar PA-C - Last Filed: 11/01/21 16:09> Status: Acute <JOHN AstorgaC - Last Filed: 11/01/21 16:09> Assessment and Plan: CXR showed no acute cardiopulmonary findings, however CT abdomen/pelvis showed tree-in-bud opacities with multiple small centrilobular nodules at the lingula and left lower lobe * Managed with IV Levaquin. Will continue p.o. Levaquin to complete 7 days * COVID-19 negative. Influenza negative. Urinary Legionella and pneumococcal antigens pending and will be monitored. * Supportive care. Bronchodilators, expectorants, incentive spirometry, cornet provided. * Sputum cultures with growth of normal oropharyngeal emir * No supplemental O2 required <Sudha Aguilar PA-C - Last Filed: 11/01/21 16:09> (2) COPD exacerbation: Code(s): J44.1 - Chronic obstructive pulmonary disease with (acute) exacerbation <Sudha Aguilar PA-C - Last Filed: 11/01/21 16:09> Status: Acute <Sudha Aguilar PA-C - Last Filed: 11/01/21 16:09> Assessment and Plan: Patient with evidence of exacerbation on upon presentation * Improved following IV steroids and will continue p.o. prednisone on discharge. 40 mg p.o. for 5 days * Continue DuoNebs as needed for SOB/wheezing. Prescribed nebulizer on discharge. * Continue home Incruse Ellipta and Symbicort <Sudha Aguilar PA-C - Last Filed: 11/01/21 16:09> (3) UTI (urinary tract infection): Code(s): N39.0 - Urinary tract infection, site not specified <Sudha Aguilar PA-C - Last Filed: 11/01/21 16:09> Status: Acute <Sudha JJOHN VilledaC - Last Filed: 11/01/21 16:09> Assessment and Plan: UA abnormal on presentation. Urine culture with growth of >100k E coli * Continue Levaquin based on susceptibility. <Sudha Aguilar PA-C - Last Filed: 11/01/21 16:09> (4) Renal insufficiency: Code(s): N28.9 - Disorder of kidney and ureter, unspecified <JOHN AstorgaC - Last Filed: 11/01/21 16:09> Status: Acute <Sudha Aguilar PA-C - Last Filed: 11/01/21 16:09> Assessment and Plan: Improved. Baseline creatinine appears to be around 1.1 * Creatinine elevated up to 1.6 on presentation. * Renal function improved with gentle IV hydration. Creatinine 1.2 at time of discharge * Renal ultrasound showed normal kidneys with no acute findings * Lisinopril held due to MARVIN but was resumed on discharge. Repeat BMP in 1 week to monitor renal function <Sudha Aguilar PA-C - Last Filed: 11/01/21 16:09> (5) Hypertension: Code(s): I10 - Essential (primary) hypertension <Sudha Aguilar PA-C - Last Filed: 11/01/21 16:09> Status: Acute <JOHN AstorgaC - Last Filed: 11/01/21 16:09> Assessment and Plan: Blood pressures reviewed and were slightly elevated above target. He did have 1 transient episode of low BP on presentation. * Continue carvedilol * Lisinopril resumed which should help with BP control * Encouraged to monitor blood pressures at home and record for review by PCP. <Sudha Aguilar PA-C - Last Filed: 11/01/21 16:09> (6) Tobacco abuse: Code(s): Z72.0 - Tobacco use <Sudha Aguilar PA-C - Last Fi
--- NOTE | 2021-11-01 09:44 | PM.DS ---
DS: Admitting Diagnosis Discharge Date 11/01/2021 <JOHN AstorgaC - Last Filed: 11/01/21 16:09> Admitting Diagnosis COPD exacerbation <JOHN AstorgaC - Last Filed: 11/01/21 16:09> DS: Discharge Diagnosis Discharge Diagnosis (1) Community acquired pneumonia: Code(s): J18.9 - Pneumonia, unspecified organism <JOHN AstorgaC - Last Filed: 11/01/21 16:09> Status: Acute <SHELLEY Astorga-C - Last Filed: 11/01/21 16:09> Assessment and Plan: CXR showed no acute cardiopulmonary findings, however CT abdomen/pelvis showed tree-in-bud opacities with multiple small centrilobular nodules at the lingula and left lower lobe Managed with IV Levaquin. Will continue p.o. Levaquin to complete 7 days COVID-19 negative. Influenza negative. Urinary Legionella and pneumococcal antigens pending and will be monitored. Supportive care. Bronchodilators, expectorants, incentive spirometry, cornet provided. Sputum cultures with growth of normal oropharyngeal emir No supplemental O2 required <SHELLEY Astorga-C - Last Filed: 11/01/21 16:09> (2) COPD exacerbation: Code(s): J44.1 - Chronic obstructive pulmonary disease with (acute) exacerbation <SHELLEY Astorga-C - Last Filed: 11/01/21 16:09> Status: Acute <SHELLEY Astorga-C - Last Filed: 11/01/21 16:09> Assessment and Plan: Patient with evidence of exacerbation on upon presentation Improved following IV steroids and will continue p.o. prednisone on discharge. 40 mg p.o. for 5 days Continue DuoNebs as needed for SOB/wheezing. Prescribed nebulizer on discharge. Continue home Incruse Ellipta and Symbicort <JOHN AstorgaC - Last Filed: 11/01/21 16:09> (3) UTI (urinary tract infection): Code(s): N39.0 - Urinary tract infection, site not specified <SHELLEY Astorga-C - Last Filed: 11/01/21 16:09> Status: Acute <Sudha Aguilar PA-C - Last Filed: 11/01/21 16:09> Assessment and Plan: UA abnormal on presentation. Urine culture with growth of >100k E coli Continue Levaquin based on susceptibility. <Sudha Aguilar PA-C - Last Filed: 11/01/21 16:09> (4) Renal insufficiency: Code(s): N28.9 - Disorder of kidney and ureter, unspecified <Sudha Aguilar PA-C - Last Filed: 11/01/21 16:09> Status: Acute <Sudha Aguilar PA-C - Last Filed: 11/01/21 16:09> Assessment and Plan: Improved. Baseline creatinine appears to be around 1.1 Creatinine elevated up to 1.6 on presentation. Renal function improved with gentle IV hydration. Creatinine 1.2 at time of discharge Renal ultrasound showed normal kidneys with no acute findings Lisinopril held due to MARVIN but was resumed on discharge. Repeat BMP in 1 week to monitor renal function <Sudha Aguilar PA-C - Last Filed: 11/01/21 16:09> (5) Hypertension: Code(s): I10 - Essential (primary) hypertension <Sudha Aguilar PA-C - Last Filed: 11/01/21 16:09> Status: Acute <Sudha Aguilar PA-C - Last Filed: 11/01/21 16:09> Assessment and Plan: Blood pressures reviewed and were slightly elevated above target. He did have 1 transient episode of low BP on presentation. Continue carvedilol Lisinopril resumed which should help with BP control Encouraged to monitor blood pressures at home and record for review by PCP. <Sudha Aguilar PA-C - Last Filed: 11/01/21 16:09> (6) Tobacco abuse: Code(s): Z72.0 - Tobacco use <Sudha Aguilar PA-C - Last Filed: 11/01/21 16:09> Status: Acute <Sudha Aguilar PA-C - Last Filed: 11/01/21 16:09> Assessment and Plan: Patient smokes a quarter pack per day Educated on smoking cessation for 5 minutes. Patient is motivated to quit smoking. Declined nicotine patch during admission. <Sudha Aguilar PA-C - Last Filed: 11/01/21 16:09> (7)
[2021-11-01 11:01] LABS: Influenza Control Positive
[2021-11-04 13:32] LABS: Pneumococcal Antigen Urine Not Detected (Not Detected)
[2021-11-05 13:57] LABS: Legionella pneumophila Ag Ur Not Detected (Not Detected)
== END 2021-11-01 11:30 | disposition home or self-care (01) | DRG 871 ==
LOC: ANHED 11:31 → ANH3MEDSUR 11:34
PROVIDERS: Physician Assistant; Admitting Provider Internal Medicine; Emergency Provider Emergency Medicine; PCP Emergency Medicine; Visit Provider Physician Assistant
DX: A41.9 Sepsis, unspecified organism (principal); J18.9 Pneumonia, unspecified organism; N17.9 Acute kidney failure, unspecified; N39.0 Urinary tract infection, site not specified; B96.20 Unspecified Escherichia coli [E. coli] as the cause of diseases classified elsewhere; J43.9 Emphysema, unspecified; J45.909 Unspecified asthma, uncomplicated; Z20.822 Contact with and (suspected) exposure to COVID-19; F17.210 Nicotine dependence, cigarettes, uncomplicated; I25.10 Atherosclerotic heart disease of native coronary artery without angina pectoris; K21.9 Gastro-esophageal reflux disease without esophagitis; I11.0 Hypertensive heart disease with heart failure; I50.9 Heart failure, unspecified; E78.5 Hyperlipidemia, unspecified; Z79.899 Other long term (current) drug therapy
CPT/HCPCS: 36415; 36600; 71045; 74176; 76775; 80048; 80053; 81001; 82375; 82805; 83050; 83605; 83735; 83880; 84484; 85025; 85027; 85610; 85730; 87040; 87070; 87077; 87086; 87186; 87205; 87449; 87804; 87899; 93005; 94640; 94667; 94668; 96361; 96365; 96372; 96375; 96376; 99285; A9270; C9803; G0378; J0131; J0360; J1650; J1956; J2920; J2930; J7030; U0003; U0005

== ENCOUNTER 2021-12-20 12:44 | Emergency (ER) | payer MEDICARE, SELFPAY ==
[2021-12-20] VITALS (9 sets, daily range): BP systolic 158–189; BP diastolic 78–111; PULSE 58–110; RESP 16–27; TEMP 36.3; O2SAT 95–100
--- NOTE | ~2021-12-20 | XR_ITS ---
XR chest 1V portable INDICATION: Dyspnea TECHNIQUE: 2 view chest. FINDINGS: 10/29/2021 There is mild bilateral interstitial prominence and peribronchial cuffing. There is no focal consoli dation, pleural effusion, or pneumothorax. The cardiomediastinal silhouette is normal. IMPRESSION: 1. Findings most consistent with bronchiolitis versus an atypical or viral pneumonia. Reviewed, dictated and finalized at location A. IMPRESSION: 1. Findings most consistent with bronchiolitis versus an atypical or viral [facility].
--- NOTE | ~2021-12-20 | CT_ITS ---
EXAMINATION: CTA chest PE protocol DATE: 12/20/2021 18:16 CDT INDICATION: Shortness of breath. COPD. Pneumonia. TECHNIQUE: Computed tomographic angiography (CTA) of the chest was performed with 100 mL Omnipaque-35 0 intravenous contrast. The dose-length product was 270.61 mGy-cm. Maximum intensity projection 3D-re constructions of the aorta and other arteries were constructed by the technologist on a separate work station. Automated exposure control and iterative reconstruction technique were employed. COMPARISON: Chest dated 12/20/2021. FINDINGS: The study is technically adequate without evidence for pulmonary embolism. Heart size yarelis l. No significant pleural or pericardial effusion. No thoracic lymphadenopathy. No significant pleura l or pericardial effusion. Upper abdomen is unremarkable. There are reticulonodular densities with ce ntrilobular pattern in the right upper and middle lobes, most likely infectious. No pneumothorax. No endobronchial lesions. IMPRESSION: 1. Centrilobular nodules of the right upper and middle lobes with areas of tree-in-bud configuration, most likely infectious/inflammatory. 2: No evidence for pulmonary embolism. Reviewed, dictated and finalized at location A. IMPRESSION: 1. Centrilobular nodules of the right upper and middle lobes with areas of tree -in-bud configuration, most likely infectious/inflammatory. 2: No evidence for pulmonary embolism.
--- NOTE | 2021-12-20 12:47 | ECG_ITS ---
Measurements Intervals [place] Rate: 66 P: 68 SC: 173 QRS: 56 QRSD: 94 T: 50 QT: 369 QTc: 387 Interpretive Statements SINUS RHYTHM NORMAL ECG Electronically Signed On 12-20-2021 12:54:31 CDT by Rolf Fry D.O.
--- NOTE | 2021-12-20 13:12 | ED.RECABL ---
HPI - Recheck/Abnormal Lab/Rx General Chief Complaint: Recheck/Abnormal Lab/Rx Stated Complaint: I dont know, they sent me with this EKG Time Seen by Provider: 12/20/21 13:08 History of Present Illness HPI narrative: Patient is a 66-year-old male with a history of congestive heart failure, CAD, COPD, asthma, hypertension, hyperlipidemia, GERD, with recent admission in October of this year for COPD exacerbation and pneumonia, presenting to the emergency department for evaluation of shortness of breath. Patient was initially seen by his primary care physician who sent the patient here for further assessment. Per chart review, this is the exact presentation that patient had with last ER visit. Patient reports mild wheezing, mild amount of coughing which is at his baseline. He denies any chest pain, fever, chills. He does report mild shortness of breath but denies any significant dyspnea currently. He denies any current leg swelling or calf pain. He did recently travel to [place] where he is from. Patient reports he is compliant with his medications. He was seen by his primary care physician today for general checkup and for medication refills. Patient apparently had an EKG done in the office and was sent here for evaluation of this. Patient states he is unsure why he was sent to the emergency department. Patient reports he is not vaccinated for COVID. Denies recent sick contacts. Related Data Home Medications Medication Instructions Recorded Confirmed carvedilol 25 mg tablet 25 mg DAILY 11/04/19 10/29/21 lisinopril 10 mg tablet 10 mg DAILY 11/04/19 10/29/21 Allergies Allergy/AdvReac Type Severity Reaction Status Date / Time No Known Allergies Allergy Unknown Verified 12/20/21 12:54 Review of Systems Review of Systems: CONSTITUTIONAL: Denies fever, chills, or sweats. ENT: Denies rhinorrhea, congestion, sore throat, or otalgia. CARDIOVASCULAR: Denies chest pain, palpitations, or edema. RESPIRATORY: Denies cough or dyspnea. GASTROINTESTINAL: Denies abdominal pain, nausea, vomiting, or diarrhea. GENITOURINARY: Denies dysuria or hematuria. SKIN: Denies rash or itching. MUSCULOSKELETAL: Denies back pain, joint pain, or myalgia. NEUROLOGIC: Denies headache, numbness, or weakness. [facility] Past Medical History Medical History Asthma Congestive heart failure Coronary artery disease Dyslipidemia Emphysema/COPD Gastroesophageal reflux disease Hypertension Tobacco abuse Surgical History Surgical History History of cardiac catheterization History of cholecystectomy History of coronary artery stent placement Family History Family History Other Cancer Hypertension Social History Social History Social History: Surrogate decision maker: Fadia Hirsch, spouse. Code status: Full code. Smoking packs per day: 0.25 Smoking cigarettes per day: 5.0 Smoking status: Current every day smoker Tobacco type: cigarettes Alcohol intake: current Drinks per week: 3 Substance use: never Spiritual care concerns: No Exam Narrative: GENERAL: Awake, alert, conversant HEAD: Normocephalic, atraumatic. EYES: 2+ PERRLA and EOMI. ENT: Nares clear, no rhinorrhea or epistaxis. Mucous membranes moist. NECK: Supple. CHEST: No respiratory distress, breathing even and non labored, expiratory wheezing bilaterally in the bilateral lower lung bases, no crackles HEART: Regular rate, sinus rhythm ABDOMEN:Non distended, non tender EXTREMITIES: Normal range of motion. No edema. SKIN: Warm, dry, no rash. NEURO:No focal deficits. Alert and oriented x3 Course Vital Signs Vital signs: Vital Signs Temperature 36.3 C L 12/20/21 12:51 Pulse Rate 75 12/20/21 12:51 Respiratory Rate 16 12/20/21 12:51 Bl
[2021-12-20 14:10] LABS: Basophils Percent Auto 0.5 % (0.2-1.2); Eosinophils Absolute Auto 0.1 K/mm3 (0-0.3); Hematocrit 42.1 % (42.0-52.0); Hemoglobin 13.7 g/dL (14.0-18.0); Immature Granulocyte Absolute 0.02 K/mm3 (0.00-0.031); Immature Granulocyte Percent A 0.3 % (0-0.5); Lymphocytes Absolute Auto 1.71 K/mm3 (0.9-3.2); Lymphocytes Percent Auto 28.2 % (18.3-44.2); Mean Corpuscular HGB Conc 32.5 g/dl (32-36); Mean Corpuscular Hemoglobin 29.9 pg (26-34); Mean Corpuscular Volume 91.9 fl (80-100); Mean Platelet Volume 9.4 fl (7.4-10.4); Monocytes Absolute Auto 0.7 K/mm3 (0.1-0.6); Monocytes Percent Auto 11.2 % (2.6-8.5); Neutrophils Absolute Auto 3.5 K/mm3 (1.3-6.7); Neutrophils Percent Auto 57.8 % (45.5-73.1); Platelet Count Result 203 k/mm3 (150-375); Red Blood Count 4.58 M/mm3 (4.6-6.20); Red Cell Distribution Width 13.6 % (11.5-14.5); White Blood Count 6.1 K/mm3 (4.5-10.0)
[2021-12-20] MEDS: DEXAMETHASONE SOD PHOS INJ 4 MG/ML VIAL 10 MG BY MOUTH (14:20)
[2021-12-20 14:22] LABS: Anion Gap 1 mmol/L (8-16); Blood Urea Nitrogen 14 mg/dL (9-20); Calcium 8.8 mg/dL (8.4-10.2); Carbon Dioxide 30 mmol/L (22-30); Chloride 109 mmol/L (98-107); Estimated CRCL calculation 48 ml/min; Estimated Glomerular Filt Rate > 60; Glucose 93 mg/dL (65-110); Potassium 4.7 mmol/L (3.4-5.0); Sodium 140 mmol/L (137-145)
[2021-12-20 14:35] LABS: NT Pro B Type Natriuretic Pept 506 pg/mL (5-100); Troponin I < 0.012 ng/mL (0.000-0.034)
[2021-12-20] MEDS: IPRATROPIUM BR 0.02% INH SOLN 0.5 MG/2.5 ML VIAL INHALATION (14:50)
[2021-12-20] MEDS: ALBUTEROL SULFATE NEB 2.5 MG/3 ML INH 5 MG INHALATION (14:51)
[2021-12-20 14:52] LABS: SARS-CoV-2 RNA PCR Negative
== END 2021-12-20 18:56 | disposition home or self-care (01) ==
PROVIDERS: Emergency Provider Emergency Medicine; PCP Emergency Medicine
DX: J44.1 Chronic obstructive pulmonary disease with (acute) exacerbation (principal); Z20.822 Contact with and (suspected) exposure to COVID-19; I25.10 Atherosclerotic heart disease of native coronary artery without angina pectoris; E78.5 Hyperlipidemia, unspecified; I11.0 Hypertensive heart disease with heart failure; I50.9 Heart failure, unspecified; K21.9 Gastro-esophageal reflux disease without esophagitis; Z95.5 Presence of coronary angioplasty implant and graft; F17.210 Nicotine dependence, cigarettes, uncomplicated
CPT/HCPCS: 36415; 71045; 71275; 80048; 83880; 84484; 85025; 93005; 94640; 99284; C9803; J1100; Q9967; U0003; U0005

== ENCOUNTER 2022-05-13 12:49 | Outpatient (CLI) | payer MEDICARE, SELFPAY ==
[2022-05-13 14:06] LABS: Anion Gap 7 mmol/L (8-16); Blood Urea Nitrogen 17 mg/dL (9-20); Calcium 8.9 mg/dL (8.4-10.2); Carbon Dioxide 27 mmol/L (22-30); Chloride 108 mmol/L (98-107); Estimated Glomerular Filt Rate 55; Glucose 91 mg/dL (65-110); Potassium 4.2 mmol/L (3.4-5.0); Sodium 142 mmol/L (137-145)
== END 2022-05-13 12:50 | disposition home or self-care (01) ==
LOC: ANHLAB 12:52
PROVIDERS: PCP Emergency Medicine; Visit Provider Internal Medicine Cardiovascular Disease
DX: Z01.810 Encounter for preprocedural cardiovascular examination (principal); I10 Essential (primary) hypertension
CPT/HCPCS: 36415; 80048

== ENCOUNTER 2022-05-24 10:44 | Outpatient (CLI) | payer MEDICARE, SELFPAY ==
[2022-05-24 11:53] LABS: Hematocrit 46.4 % (42.0-52.0); Hemoglobin 15.6 g/dL (14.0-18.0); Mean Corpuscular HGB Conc 33.6 g/dl (32-36); Mean Corpuscular Hemoglobin 30.6 pg (26-34); Mean Corpuscular Volume 91.2 fl (80-100); Mean Platelet Volume 9.6 fl (7.4-10.4); Platelet Count Result 227 k/mm3 (150-375); Red Blood Count 5.09 M/mm3 (4.6-6.20); Red Cell Distribution Width 13.4 % (11.5-14.5); White Blood Count 6.4 K/mm3 (4.5-10.0)
[2022-05-24 12:09] LABS: Cholesterol 250 mg/dL (0-200); HDL Direct 43 mg/dL; Triglycerides 174 mg/dL (<150)
[2022-05-24 12:20] LABS: LDL Cholesterol Direct 152 mg/dL
[2022-05-24 12:36] LABS: Microalbumin Urine Random 448.5 mg/L (0-16.7)
[2022-05-24 13:02] LABS: MALB Creatinine Ratio 120.6 mg/g (0-30)
== END 2022-05-24 10:45 | disposition home or self-care (01) ==
PROVIDERS: PCP Emergency Medicine; Visit Provider Emergency Medicine
DX: E78.5 Hyperlipidemia, unspecified (principal); I10 Essential (primary) hypertension
CPT/HCPCS: 36415; 80061; 82043; 85027

== ENCOUNTER 2022-05-27 08:32 | Outpatient (CLI) | payer MEDICARE, SELFPAY ==
[2022-05-27 09:23] LABS: Alanine Aminotransferase 23 U/L (6-50); Albumin Level 4.5 g/dL (3.5-5.1); Alkaline Phosphatase 83 U/L (38-126); Anion Gap 6 mmol/L (8-16); Aspartate Amino Transferase 31 U/L (17-59); Bilirubin,Total 0.4 mg/dL (0.2-1.3); Blood Urea Nitrogen 20 mg/dL (9-20); Calcium 8.9 mg/dL (8.4-10.2); Carbon Dioxide 27 mmol/L (22-30); Chloride 106 mmol/L (98-107); Cholesterol 247 mg/dL (0-200); Estimated Glomerular Filt Rate 51; Glucose 107 mg/dL (65-110); HDL Direct 45 mg/dL; Potassium 4.1 mmol/L (3.4-5.0); Sodium 139 mmol/L (137-145); Triglycerides 176 mg/dL (<150)
[2022-05-27 09:35] LABS: LDL Cholesterol Direct 146 mg/dL
== END 2022-05-27 08:33 | disposition home or self-care (01) ==
LOC: ANHLAB 08:35
PROVIDERS: PCP Emergency Medicine; Visit Provider Internal Medicine Cardiovascular Disease
DX: I10 Essential (primary) hypertension (principal); E78.5 Hyperlipidemia, unspecified; I25.810 Atherosclerosis of coronary artery bypass graft(s) without angina pectoris; J44.9 Chronic obstructive pulmonary disease, unspecified; Z13.6 Encounter for screening for cardiovascular disorders
CPT/HCPCS: 36415; 80053; 80061

== ENCOUNTER 2022-09-20 03:33 | Inpatient (IN) | payer MEDICARE, MEDICAID, SELFPAY ==
[2022-09-20] VITALS (30 sets, daily range): BP systolic 102–148; BP diastolic 60–76; PULSE 70–103; RESP 16–34; TEMP 36.4–36.6; O2SAT 92–100; BMI 39.4
--- NOTE | 2022-09-20 | ECHO_ITS ---
Patient Info Name: Karthik Mars Age: 67 years : 1955 Gender: Male Ht: 61 in Wt: 157 lbs BSA: 1.78 m2 HR: 91 bpm BP: 104 / 72 mmHg Technical Quality: Fair Exam Date: 09/20/2022 10:21 AM Exam Location: [facility] Patient Status: Outpatient Admit Date: 09/20/2022 Staff Ordering Physician: Stanislaw Sheikh MD Child Psychologist: Jayson Cantrell RDCS, RT Attending Provider: Leatha Her DO Exam Type: CA echo doppler color flow Study Info Indications R06.02 - Shortness of breath Complete two-dimensional, color flow and Doppler transthoracic echocardiogram is performed. Strain analysis performed. Summary 1. Complete two-dimensional, color flow and Doppler transthoracic echocardiogram is performed. 2. Left ventricular chamber dimension is normal. 3. Left ventricular systolic function is normal, estimated at 60-65%. 4. The left ventricular diastolic function is normal. 5. E/e' 9 is minimally elevated. 6. Global longitudinal strain is normal at -18.0%. 7. There is trace aortic valve regurgitation. Left Ventricle E/e' 9 is minimally elevated. Global longitudinal strain is normal at -18.0%. Left ventricular chamber dimension is normal. Left ventricular systolic function is normal, estimated at 60-65%. The left ventricular diastolic function is normal. Right Ventricle Right ventricular systolic function is normal and with normal TAPSE 2.3 cm. Right ventricular chamber dimension is normal. Left Atria Left atrial chamber dimension is normal. Right Atria Right atrial chamber dimension is normal. Aortic Valve The aortic valve is not well visualized. Cannot determine number of aortic valve leaflets. There is no aortic valve stenosis. There is trace aortic valve regurgitation. Pulmonic Valve There is no pulmonic regurgitation. Mitral Valve There is no mitral valve stenosis. There is no mitral valve regurgitation. Tricuspid Valve There is no tricuspid valve regurgitation. Pericardium/Pleural There is no pericardial effusion. Inferior Vena Cava Normal inferior vena cava with >50% collapse upon inspiration consistent with normal right atrial pressure, 5 mmHg. Aorta The aortic root size at the sinus of Valsalva is normal. Left Ventricular Outflow Tract Name Value Normal LVOT 2D LVOT Diameter 2.0 cm LVOT Doppler LVOT Peak Velocity 101 cm/s LVOT Peak Gradient 4 mmHg LVOT Mean Gradient 2 mmHg LVOT VTI 19 cm LVOT VTI/AV VTI Ratio 0.7 LVOT Stroke Volume 61 ml LVOT CO 5.3 l/min LVOT CI 3.0 l/min/m2 Mitral Valve Name Value Normal MV Doppler MV Decel Edmunds 550 cm/s2
--- NOTE | ~2022-09-20 | XR_ITS ---
Portable chest x-ray Comparison: 12/20/2021 Clinical History: Dyspnea Findings: There is minimal bibasilar haziness. No pleural effusion or pneumothorax. Cardiomediastin al silhouette is stable. Bones and soft tissues are unremarkable. Impression: Probable minimal bibasilar pulmonary edema. Reviewed, dictated and finalized at location . Impression: Probable minimal bibasilar pulmonary edema.
--- NOTE | 2022-09-20 03:37 | ECG_ITS ---
Measurements Intervals [place] Rate: 102 P: 77 [place]: 163 QRS: 66 QRSD: 109 T: 50 QT: 344 QTc: 450 Interpretive Statements SINUS TACHYCARDIA BASELINE ARTIFACT BORDERLINE ECG COMPARED TO ECG 12/20/2021 12:51:36 SINUS TACHYCARDIA NOW PRESENT Electronically Signed On 09-20-2022 16:42:17 CDT by Garry Javier M.D.
--- NOTE | 2022-09-20 03:54 | ECG_ITS ---
Measurements Intervals [place] Rate: 102 P: 77 [place]: 163 QRS: 66 QRSD: 109 T: 50 QT: 344 QTc: 450 Interpretive Statements SINUS TACHYCARDIA BASELINE ARTIFACT BORDERLINE ECG COMPARED TO ECG 12/20/2021 12:51:36 SINUS TACHYCARDIA NOW PRESENT Electronically Signed On 09-20-2022 16:42:39 CDT by Garry Javier M.D.
[2022-09-20] MEDS: SODIUM CHLORIDE 0.9% IV 1,000 ML 999 ML (03:55)
[2022-09-20 04:02] LABS: Basophils Absolute Auto 0.1 K/mm3 (0.0-0.1); Basophils Percent Auto 0.3 % (0.2-1.2); Eosinophils Percent Auto 0.2 % (0-4.4); Hematocrit 38.9 % (42.0-52.0); Hemoglobin 13.3 g/dL (14.0-18.0); Immature Granulocyte Absolute 0.08 K/mm3 (0.00-0.031); Immature Granulocyte Percent A 0.4 % (0-0.5); Lymphocytes Absolute Auto 1.27 K/mm3 (0.9-3.2); Lymphocytes Percent Auto 7.1 % (18.3-44.2); Mean Corpuscular HGB Conc 34.2 g/dl (32-36); Mean Corpuscular Hemoglobin 31.1 pg (26-34); Mean Corpuscular Volume 91.1 fl (80-100); Monocytes Absolute Auto 1.5 K/mm3 (0.1-0.6); Monocytes Percent Auto 8.3 % (2.6-8.5); Neutrophils Absolute Auto 14.9 K/mm3 (1.3-6.7); Neutrophils Percent Auto 83.7 % (45.5-73.1); Platelet Count Result 302 k/mm3 (150-375); Red Blood Count 4.27 M/mm3 (4.6-6.20); Red Cell Distribution Width 13.5 % (11.5-14.5); White Blood Count 17.9 K/mm3 (4.5-10.0)
[2022-09-20 04:13] LABS: Alveolar/Arterial O2 Gradient 147.8 mmHg; Base Excess ABG -6.3 mEq/l (+/-2.0); Fractional Inspired Oxygen 50 %; HCO3 ABG 19.4 mEq/l (22.0-26.0); Oxygen Content ABG 18.5 %vol (16.0-22.0); Oxyhemoglobin 97.5 % THb (90.0-100.0); PO2 ABG 164.8 mmHg (80.0-100.0); Total Hemoglobin 13.3 g/dL (12.0-18.0)
[2022-09-20 04:13] LABS: Alanine Aminotransferase 29 U/L (6-50); Alkaline Phosphatase 116 U/L (38-126); Anion Gap 14 mmol/L (8-16); Aspartate Amino Transferase 38 U/L (17-59); Bilirubin,Total 0.6 mg/dL (0.2-1.3); Blood Urea Nitrogen 50 mg/dL (9-20); Calcium 8.3 mg/dL (8.4-10.2); Carbon Dioxide 22 mmol/L (22-30); Chloride 98 mmol/L (98-107); Estimated CRCL calculation 20 ml/min; Estimated Glomerular Filt Rate 22; Glucose 138 mg/dL (65-110); Magnesium 2.1 mg/dL (1.6-2.3); Potassium 3.5 mmol/L (3.4-5.0); Sodium 134 mmol/L (137-145)
[2022-09-20 04:14] LABS: Modified Allen's Test Pass; Site Drawn RIGHT RADIAL
[2022-09-20 04:15] LABS: Device OTHER DEVICE; pH ABG 7.314 (7.350-7.450)
[2022-09-20 04:23] LABS: INR 1.2; Prothrombin Time 14.3 Seconds (11.1-14.7)
[2022-09-20 04:24] LABS: NT Pro B Type Natriuretic Pept 141 pg/mL (19.9-100); Partial Thromboplastin Time 44.8 SECONDS (22.3-36.8); Troponin I < 0.012 ng/mL (0.000-0.034)
[2022-09-20] MEDS: IPRATROPIUM BR 0.02% INH SOLN 0.5 MG/2.5 ML VIAL INHALATION ×4 (04:26→19:00)
[2022-09-20] MEDS: LEVALBUTEROL NEB 1.25 MG/3 ML INHALATION ×2 (04:27→07:32)
[2022-09-20 04:36] LABS: Lactic Acid Reflex 1.1 mmol/L (0.7-2.0)
[2022-09-20 04:37] LABS: Influenza A QL RT-PCR Negative (Negative); Influenza B QL RT-PCR Negative (Negative); RSV RNA, RT-PCR Negative (Negative); SARS-CoV-2 RNA PCR Negative
[2022-09-20 04:55] LABS: Procalcitonin 0.7 ng/mL
[2022-09-20 05:18] LABS: Appearance Urine Cloudy (Clear); Bacteria Urine None Seen /hpf; Bilirubin Urine Negative (Negative); Blood Urine 1+ (Negative); Color Urine Yellow (Yellow); Glucose Urine UA Negative (Negative); Ketones Urine Negative (Negative); Leukocyte Esterase Ur Negative LEU/UL (Negative); Need Manual Microscopic Reviewed; Nitrate Urine Negative (Negative); Protein Urine 1+ mg/dL (Negative); RBC Urine 0-2 /hpf (0-2); Specific Grav Ur 1.013 (1.001-1.035); Squamous Epithelial Cell Urine Occasional /hpf (Few); Urobilinogen Urine 0.2 mg/dL (<2.0); WBC Urine 0-5 /hpf; pH Urine 5.5 (5.0-9.0)
[2022-09-20 05:20] LABS: Add Urine Microscopic? YES
[2022-09-20] MEDS: SODIUM CHLORIDE 0.9% IV 1,000 ML 999 ML IV CONT (05:21)
--- NOTE | 2022-09-20 06:03 | ED.GENADULT ---
HPI - General Adult General Chief complaint: Chest Pain Stated complaint: SOB/CP Time Seen by Provider: 09/20/22 03:54 History of Present Illness HPI narrative: Patient is a 67-year-old gentleman who presents the emergency department with chief complaint of shortness of breath. Patient reports over the last 2 weeks has been having a productive cough is also been having increasing shortness of breath the patient recently took a trip to [place] and reports that he has been out of his medications. The patient stated that as he has been getting back to the [facility] his breathing is gotten progressively worse and has not been improving the patient does report that he has had a history of congestive heart failure in the past but reports this feels different. The patient denies chest pain patient reports that is hard to talk in full sentences. The patient does state that he has been wheezing a lot at home. Related Data Home Medications Medication Instructions Recorded Confirmed carvedilol 25 mg tablet 25 mg DAILY 11/04/19 10/29/21 lisinopril 10 mg tablet 10 mg DAILY 11/04/19 10/29/21 Allergies Allergy/AdvReac Type Severity Reaction Status Date / Time No Known Allergies Allergy Unknown Verified 12/20/21 12:54 Review of Systems Review of Systems: A 10 system review of systems was completed on the patient and is negative except for what is stated in the HPI. Nursing and ancillary documentation was reviewed. [facility] Past Medical History Medical History Asthma Congestive heart failure Coronary artery disease Dyslipidemia Emphysema/COPD Gastroesophageal reflux disease Hypertension Tobacco abuse Surgical History Surgical History History of cardiac catheterization History of cholecystectomy History of coronary artery stent placement Family History Family History Other Cancer Hypertension Social History Social History Social History: Surrogate decision maker: Fadia Torrey, spouse. Code status: Full code. Smoking packs per day: 0.25 Smoking cigarettes per day: 5.0 Smoking status: Current every day smoker Tobacco type: cigarettes Alcohol intake: current Drinks per week: 3 Substance use: never Living arrangements: with family Occupation/Education: retired Spiritual care concerns: No Exam Narrative: GENERAL: Ill-appearing, well-nourished, and in mild respiratory distress. HEAD: Normocephalic, atraumatic. EYES: PERRLA and EOMI. ENT: Nares clear, no rhinorrhea or epistaxis. Mucous membranes dry. NECK: Supple. CHEST: Wheezing to auscultation. Mild respiratory. HEART: Regular rate and rhythm. No murmur heard. Normal peripheral pulses. ABDOMEN: Soft, nontender, nondistended, normal active bowel sounds. EXTREMITIES: Normal range of motion. No edema. SKIN: Warm, dry, no rash. NEURO: No focal deficits. Alert and oriented x3. PSYCH: Normal mood and affect. Course Vital Signs Vital signs: Vital Signs Temperature 36.5 C 09/20/22 03:40 Pulse Rate 97 09/20/22 03:40 Respiratory Rate 34 H 09/20/22 03:40 Pulse Oximetry 94 09/20/22 03:40 Oxygen Delivery Nasal Cannula 09/20/22 03:40 Oxygen Flow Rate 4 09/20/22 03:40 Temperature 36.5 C 09/20/22 03:40 Pulse Rate 92 09/20/22 06:03 Respiratory Rate 28 H 09/20/22 06:03 Blood Pressure 120/72 09/20/22 06:03 Pulse Oximetry 92 09/20/22 06:03 Oxygen Delivery Nasal Cannula 09/20/22 03:58 Oxygen Flow Rate 3 09/20/22 03:58 Medical Decision Making MDM Narrative Medical decision making narrative: Differential diagnosis includes ACS, CHF, pneumonia, COVID-19, COPD exacerbation. Patient received nebulizer treatments in the emergency department also was init
[2022-09-20 07:35] LABS: Troponin I < 0.012 ng/mL (0.000-0.034)
--- NOTE | 2022-09-20 07:37 | PC.NURSE ---
ordered pt breakfast tray.
[2022-09-20] MEDS: methylPREDNISolone SOD SUCC 125 MG VIAL IV PUSH (07:57)
[2022-09-20] MEDS: SODIUM CHLORIDE 0.9% IV 1,000 ML 125 ML IV CONT (07:58)
--- NOTE | 2022-09-20 09:25 | PC.NURSE ---
This patient, Karthik Mars, was admitted to 2 Medical Room 249-01. Patient/family oriented to hospital policies and general routines including ID bracelet, bed and alarms, visiting hours, pain management, procedures, bathroom and other care routines, personal items, smoking policy, room service/diet, and visiting hours. Information on how to activate the Rapid Response Team has been discussed. Patient/Family are encouraged to report perceived risks to care and to ask questions if they do not understand what they are told or what they should do.
[2022-09-20] MEDS: FUROSEMIDE INJ 40 MG/4 ML VIAL 20 MG IV PUSH (11:21)
[2022-09-20] MEDS: PANTOPRAZOLE 40 MG TABLET PO (11:22)
[2022-09-20] MEDS: ASPIRIN 81 MG CHEWABLE TABLET PO (11:22)
--- NOTE | 2022-09-20 12:13 | PM.IMHP ---
H&P: HPI History of Present Illness Date/Time: 09/20/22 12:13 Chief Complaint: Shortness of breath Narrative: ED-HPI narrative: Patient is a 67-year-old gentleman who presents the emergency department with chief complaint of shortness of breath.? Patient reports over the last 2 weeks has been having a productive cough is also been having increasing shortness of breath the patient recently took a trip to [place] and reports that he has been out of his medications.? The patient stated that as he has [place] getting [place] to the states his breathing is gotten progressively worse and has not been improving the patient does report that he has had a history of congestive heart failure in the past but reports this feels different.? The patient denies chest pain patient reports that is hard to talk in full sentences.? The patient does state that he has been wheezing a lot at home. Patient is 67-year-old male still with history of congestive heart and COPD presented emergency department with complaint shortness of breath multifactorial most likely exacerbation of COPD, congestive heart failure and suspicious of pneumonia, patient's being treated with methylprednisone and bronchodilator for COPD, patient with congestive heart failure etiology uncertain and patient BUN/creatinine is elevated however will gently diurese the patient with IV Lasix 20 mg and monitor patient kidney function, patient is already started on ceftriaxone azithromycin for suspected pneumonia, patient states feel little better compared to when he arrived not a short of breath, will continue to monitor high PT OT evaluate the patient and further recommendation to follow. Patient is admitted as inpatient with exacerbation of COPD and CHF as well as community-acquired pneumonia, patient will stay in the hospital for 2 midnights, Review of Systems Review of Systems: A 10 system review of systems was completed on the patient and is negative except for what is stated in the HPI. Nursing and ancillary documentation was reviewed. REPLACED BY [facility] Past Medical History Medical History Asthma Congestive heart failure Coronary artery disease Dyslipidemia Emphysema/COPD Gastroesophageal reflux disease Hypertension Tobacco abuse Surgical History Surgical History History of cardiac catheterization History of cholecystectomy History of coronary artery stent placement Family History Family History Other Cancer Hypertension Social History Social History Social History: Surrogate decision maker: Fadia Hirsch, spouse. Code status: Full code. Smoking packs per day: 0.25 Smoking cigarettes per day: 5.0 Smoking status: Former smoker Tobacco type: cigarettes Alcohol intake: former Drinks per week: 3 Substance use: never Lack of Transportation: No Lack of Food: Never True Current Housing: I Have Housing Concerned About Future Housing: YES Difficulty Paying Gas/Electric Bills: YES Difficulty Paying for Meds: No Currently Unemployed: No Education: Don't Know Difficulty w/ Childcare or Family Care: No Living arrangements: with family Occupation/Education: retired Spiritual care concerns: No Meds Home Medications and Allergies Home Medications Medication Instructions Recorded Confirmed Type carvedilol 25 mg tablet 25 mg PO BID 11/04/19 09/20/22 History lisinopril 10 mg tablet 20 mg PO DAILY 11/04/19 09/20/22 History nebulizer and compressor #1 ea 10/30/21 Rx albuterol sulfate 90 mcg/actuation 2 puff inhalation Q4-6H #8.5 grams 11/01/21 09/20/22 Rx aerosol inhaler budesonide-formoterol HFA 80 2 puff inhalation Q12H #10.2 grams 11/01/21 09/20/22 Rx mcg-4.5 mcg/actuation aerosol inhaler
[2022-09-20] MEDS: LEVALBUTEROL NEB 1.25 MG/3 ML 0.63 MG INHALATION ×2 (13:17→19:00)
[2022-09-20] MEDS: methylPREDNISolone SOD SUCC 40 MG VIAL IV PUSH ×2 (13:32→21:36)
[2022-09-20] MEDS: carvediloL 25 MG TABLET PO (16:59)
[2022-09-20] MEDS: ALBUTEROL SULFATE (*SP) AEROSOL 1 PUFF 2 PUFF INHALATION (18:25)
--- NOTE | 2022-09-20 18:43 | PC.NURSE ---
Spoke to Kimberly respiratory therapist to request a treatment. Patient noted to have increased shortness of breath. Patient able to receive MDI Albuterol at this time and plan to receive breathing treatments around 7pm.
[2022-09-20] MEDS: FLUTICASONE/SALMETEROL 45-21 MCG INHALER 1 PUFF 2 PUFF INHALATION (19:12)
[2022-09-21] VITALS (23 sets, daily range): BP systolic 113–127; BP diastolic 55–64; PULSE 63–95; RESP 18–28; TEMP 36.4–36.8; O2SAT 94–98
[2022-09-21] MEDS: LEVALBUTEROL NEB 1.25 MG/3 ML 0.63 MG INHALATION ×4 (02:00→20:48)
[2022-09-21] MEDS: IPRATROPIUM BR 0.02% INH SOLN 0.5 MG/2.5 ML VIAL INHALATION ×4 (02:01→20:48)
[2022-09-21] MEDS: methylPREDNISolone SOD SUCC 40 MG VIAL IV PUSH ×3 (06:37→21:16)
[2022-09-21 06:59] LABS: Hematocrit 36.3 % (42.0-52.0); Hemoglobin 12.3 g/dL (14.0-18.0); Mean Corpuscular HGB Conc 33.9 g/dl (32-36); Mean Corpuscular Hemoglobin 31.5 pg (26-34); Mean Corpuscular Volume 92.8 fl (80-100); Mean Platelet Volume 9.6 fl (7.4-10.4); Platelet Count Result 361 k/mm3 (150-375); Red Blood Count 3.91 M/mm3 (4.6-6.20); Red Cell Distribution Width 13.4 % (11.5-14.5); White Blood Count 17.6 K/mm3 (4.5-10.0)
[2022-09-21 07:35] LABS: Anion Gap 7 mmol/L (8-16); Blood Urea Nitrogen 44 mg/dL (9-20); Carbon Dioxide 29 mmol/L (22-30); Chloride 104 mmol/L (98-107); Estimated CRCL calculation 32 ml/min; Estimated Glomerular Filt Rate 32; Glucose 159 mg/dL (65-110); Magnesium 2.3 mg/dL (1.6-2.3); Sodium 140 mmol/L (137-145)
[2022-09-21] MEDS: FLUTICASONE/SALMETEROL 45-21 MCG INHALER 1 PUFF 2 PUFF INHALATION ×2 (08:23→20:50)
[2022-09-21] MEDS: ASPIRIN 81 MG CHEWABLE TABLET PO (08:39)
[2022-09-21] MEDS: carvediloL 25 MG TABLET PO ×2 (08:39→17:07)
[2022-09-21] MEDS: ATORVASTATIN 40 MG TABLET PO (08:40)
[2022-09-21] MEDS: ENOXAPARIN 40 MG/0.4 ML SYRINGE SUB-Q (08:41)
[2022-09-21] MEDS: PANTOPRAZOLE 40 MG TABLET PO (08:41)
[2022-09-21] MEDS: FUROSEMIDE INJ 40 MG/4 ML VIAL 20 MG IV PUSH (08:50)
[2022-09-21] MEDS: guaiFENesin 12 HR 600 MG TABCR PO ×2 (09:04→21:16)
--- NOTE | 2022-09-21 11:15 | PM.IMPN ---
Progress Note: A&P Assessment and Plan (1) Congestive heart failure: Code(s): I50.9 - Heart failure, unspecified Status: Acute Assessment and Plan: ED-HPI narrative: Patient is a 67-year-old gentleman who presents the emergency department with chief complaint of shortness of breath.? Patient reports over the last 2 weeks has been having a productive cough is also been having increasing shortness of breath the patient recently took a trip to [place] and reports that he has been out of his medications.? The patient stated that as he has been getting [place] to the states his breathing is gotten progressively worse and has not been improving the patient does report that he has had a history of congestive heart failure in the past but reports this feels different.? The patient denies chest pain patient reports that is hard to talk in full sentences.? The patient does state that he has been wheezing a lot at home. 09/21/2022 interval history: Patient is 67-year-old male presented with history of congestive heart failure and COPD presented emergency department with complaint shortness of breath multifactorial most likely exacerbation of COPD as patient just stop smoking a month ago, congestive heart failure and suspicious of pneumonia, patient's being treated with methylprednisone and bronchodilator for COPD, patient with congestive heart failure etiology uncertain and patient BUN/creatinine is elevated however will gently diurese the patient with IV Lasix 20 mg daily today patient Scr is improving to 2.10 compared to 2.9 upon arrival, will monitor patient kidney function, patient is already started on ceftriaxone azithromycin for suspected pneumonia, patient states feel little better compared to when he arrived not as short of breath, will continue to monitor have PT OT evaluate the patient and further recommendation to follow. (2) Community acquired pneumonia: Code(s): J18.9 - Pneumonia, unspecified organism Status: Acute Assessment and Plan: Most likely patient has a community-acquired pneumonia patient is being treated with ceftriaxone and azithromycin will continue to monitor (3) Acute kidney injury: Code(s): N17.9 - Acute kidney failure, unspecified Status: Acute Assessment and Plan: Patient with acute on chronic kidney disease patient is being diuresed will monitor kidney function (4) Hypertension: Code(s): I10 - Essential (primary) hypertension Status: Acute Assessment and Plan: Will continue home regimen and monitor (5) COPD exacerbation: Code(s): J44.1 - Chronic obstructive pulmonary disease with (acute) exacerbation Status: Acute Assessment and Plan: Scheduled bronchodilators q.6 hours. Methylprednisolone 60 mg q.6 hours. Continue maintenance inhalers. (6) Tobacco abuse: Code(s): Z72.0 - Tobacco use Status: Acute Assessment and Plan: Smoking cessation is encouraged. He declines the need for nicotine patch. Subjective Date/time seen: 09/21/22 11:15 ED-HPI narrative: Patient is a 67-year-old gentleman who presents the emergency department with chief complaint of shortness of breath.? Patient reports over the last 2 weeks has been having a productive cough is also been having increasing shortness of breath the patient recently took a trip to [place] and reports that he has been out of his medications.? The patient stated that as he has been getting [place] to the states his breathing is gotten progressively worse and has not been improving the patient does report that he has had a history of congestive heart failure in the past but reports this feels different.? The patient denies chest pain patient reports that is hard to talk in full sentences.? The patient does state that he has been wheezing a lot at home. 09/21/2022 interval history: Patient is 67-year-old male presented with history of congestive heart failure and CO
[2022-09-22] VITALS (21 sets, daily range): BP systolic 102–131; BP diastolic 64–84; PULSE 54–91; RESP 18–24; TEMP 36.5–37.1; O2SAT 92–97
[2022-09-22] MEDS: IPRATROPIUM BR 0.02% INH SOLN 0.5 MG/2.5 ML VIAL INHALATION ×4 (02:13→20:22)
[2022-09-22] MEDS: LEVALBUTEROL NEB 1.25 MG/3 ML 0.63 MG INHALATION ×5 (02:13→20:22)
[2022-09-22] MEDS: methylPREDNISolone SOD SUCC 40 MG VIAL IV PUSH ×3 (06:16→21:57)
[2022-09-22 06:21] LABS: Hematocrit 35.7 % (42.0-52.0); Hemoglobin 11.6 g/dL (14.0-18.0); Mean Corpuscular HGB Conc 32.5 g/dl (32-36); Mean Corpuscular Hemoglobin 30.9 pg (26-34); Mean Corpuscular Volume 95.2 fl (80-100); Mean Platelet Volume 9.3 fl (7.4-10.4); Platelet Count Result 376 k/mm3 (150-375); Red Blood Count 3.75 M/mm3 (4.6-6.20); Red Cell Distribution Width 13.6 % (11.5-14.5); White Blood Count 19.4 K/mm3 (4.5-10.0)
[2022-09-22 06:38] LABS: Anion Gap 6 mmol/L (8-16); Blood Urea Nitrogen 42 mg/dL (9-20); Calcium 8.1 mg/dL (8.4-10.2); Carbon Dioxide 31 mmol/L (22-30); Chloride 105 mmol/L (98-107); Estimated CRCL calculation 44 ml/min; Estimated Glomerular Filt Rate 47; Glucose 141 mg/dL (65-110); Magnesium 2.1 mg/dL (1.6-2.3); Potassium 4.1 mmol/L (3.4-5.0); Sodium 142 mmol/L (137-145)
[2022-09-22] MEDS: FLUTICASONE/SALMETEROL 45-21 MCG INHALER 1 PUFF 2 PUFF INHALATION ×2 (07:41→20:25)
[2022-09-22] MEDS: ENOXAPARIN 40 MG/0.4 ML SYRINGE SUB-Q (08:36)
[2022-09-22] MEDS: ATORVASTATIN 40 MG TABLET PO (08:36)
[2022-09-22] MEDS: PANTOPRAZOLE 40 MG TABLET PO (08:37)
[2022-09-22] MEDS: ASPIRIN 81 MG CHEWABLE TABLET PO (08:37)
[2022-09-22] MEDS: guaiFENesin 12 HR 600 MG TABCR PO ×2 (08:37→20:06)
[2022-09-22] MEDS: carvediloL 25 MG TABLET PO ×2 (08:37→16:29)
[2022-09-22] MEDS: FUROSEMIDE INJ 40 MG/4 ML VIAL 20 MG IV PUSH (08:43)
--- NOTE | 2022-09-22 09:49 | PM.IMPN ---
Progress Note: A&P Assessment and Plan (1) Congestive heart failure: Code(s): I50.9 - Heart failure, unspecified Status: Acute Assessment and Plan: ED-[facility] narrative: Patient is a 67-year-old gentleman who presents the emergency department with chief complaint of shortness of breath.? Patient reports over the last 2 weeks has been having a productive cough is also been having increasing shortness of breath the patient recently took a trip to [place] and reports that he has been out of his medications.? The patient stated that as he has been getting [place] to the [place] his breathing is gotten progressively worse and has not been improving the patient does report that he has had a history of congestive heart failure in the past but reports this feels different.? The patient denies chest pain patient reports that is hard to talk in full sentences.? The patient does state that he has been wheezing a lot at home. 09/22/2022 interval history: Patient is 67-year-old male presented with history of congestive heart failure and COPD presented emergency department with complaint shortness of breath multifactorial most likely exacerbation of COPD as patient just stop smoking a month ago, congestive heart failure and suspicious of pneumonia, patient's being treated with methylprednisone and bronchodilator for COPD, patient with congestive heart failure etiology uncertain and patient BUN/creatinine was elevated however will gently diurese the patient with IV Lasix 20 mg daily today patient Scr is improving to 1.50 compared to 2.9 upon arrival, will monitor patient kidney function, patient is already started on ceftriaxone azithromycin for suspected pneumonia, patient states feel little better compared to when he arrived not as short of breath able to walk without getting short winded, will continue to monitor have PT OT evaluate the patient and further recommendation to follow. (2) Community acquired pneumonia: Code(s): J18.9 - Pneumonia, unspecified organism Status: Acute Assessment and Plan: Most likely patient has a community-acquired pneumonia patient is being treated with ceftriaxone and azithromycin will continue to monitor (3) Acute kidney injury: Code(s): N17.9 - Acute kidney failure, unspecified Status: Acute Assessment and Plan: Patient with acute on chronic kidney disease patient is being diuresed will monitor kidney function (4) Hypertension: Code(s): I10 - Essential (primary) hypertension Status: Acute Assessment and Plan: Will continue home regimen and monitor (5) COPD exacerbation: Code(s): J44.1 - Chronic obstructive pulmonary disease with (acute) exacerbation Status: Acute Assessment and Plan: Scheduled bronchodilators q.6 hours. Methylprednisolone 60 mg q.6 hours. Continue maintenance inhalers. (6) Tobacco abuse: Code(s): Z72.0 - Tobacco use Status: Acute Assessment and Plan: Smoking cessation is encouraged. He declines the need for nicotine patch. Subjective Date/time seen: 09/22/22 09:49 09/22/2022 interval history: Patient is 67-year-old male presented with history of congestive heart failure and COPD presented emergency department with complaint shortness of breath multifactorial most likely exacerbation of COPD as patient just stop smoking a month ago, congestive heart failure and suspicious of pneumonia, patient's being treated with methylprednisone and bronchodilator for COPD, patient with congestive heart failure etiology uncertain and patient BUN/creatinine was elevated however will gently diurese the patient with IV Lasix 20 mg daily today patient Scr is improving to 1.50 compared to 2.9 upon arrival, will monitor patient kidney function, patient is already started on ceftriaxone azithromycin for suspected pneumonia, patient states feel little better compared to when he arrived not as short of breath able to
[2022-09-23] VITALS (12 sets, daily range): BP systolic 138; BP diastolic 78; PULSE 58–90; RESP 18–20; TEMP 37.1; O2SAT 89–95
[2022-09-23] MEDS: LEVALBUTEROL NEB 1.25 MG/3 ML 0.63 MG INHALATION ×2 (01:51→07:34)
[2022-09-23] MEDS: IPRATROPIUM BR 0.02% INH SOLN 0.5 MG/2.5 ML VIAL INHALATION ×2 (01:51→07:34)
[2022-09-23 05:46] LABS: Hematocrit 39.3 % (42.0-52.0); Hemoglobin 12.8 g/dL (14.0-18.0); Mean Corpuscular HGB Conc 32.6 g/dl (32-36); Mean Corpuscular Hemoglobin 30.9 pg (26-34); Mean Corpuscular Volume 94.9 fl (80-100); Mean Platelet Volume 9.4 fl (7.4-10.4); Platelet Count Result 441 k/mm3 (150-375); Red Blood Count 4.14 M/mm3 (4.6-6.20); Red Cell Distribution Width 13.6 % (11.5-14.5); White Blood Count 16.7 K/mm3 (4.5-10.0)
[2022-09-23 06:00] LABS: Anion Gap 10 mmol/L (8-16); Blood Urea Nitrogen 37 mg/dL (9-20); Calcium 7.8 mg/dL (8.4-10.2); Carbon Dioxide 28 mmol/L (22-30); Chloride 104 mmol/L (98-107); Estimated CRCL calculation 47 ml/min; Estimated Glomerular Filt Rate 51; Glucose 193 mg/dL (65-110); Magnesium 2.2 mg/dL (1.6-2.3); Sodium 142 mmol/L (137-145)
[2022-09-23] MEDS: methylPREDNISolone SOD SUCC 40 MG VIAL IV PUSH (06:27)
[2022-09-23] MEDS: FLUTICASONE/SALMETEROL 45-21 MCG INHALER 1 PUFF 2 PUFF INHALATION (07:35)
[2022-09-23] MEDS: carvediloL 25 MG TABLET PO (08:51)
[2022-09-23] MEDS: ATORVASTATIN 40 MG TABLET PO (08:51)
[2022-09-23] MEDS: ASPIRIN 81 MG CHEWABLE TABLET PO (08:51)
[2022-09-23] MEDS: PANTOPRAZOLE 40 MG TABLET PO (08:52)
[2022-09-23] MEDS: guaiFENesin 12 HR 600 MG TABCR PO (08:52)
[2022-09-23] MEDS: ENOXAPARIN 40 MG/0.4 ML SYRINGE SUB-Q (08:52)
--- NOTE | 2022-09-23 09:10 | HOMEO2EVAL ---
Evaluation was performed at [facility] Home Oxygen Evaluation RC: Home Oxygen (O2) Evaluation Start: 09/23/22 08:24 Freq: ONCE Status: Active Protocol: RPE Activity Type Activity Date Activity User E-sign Co-sign Detail Recorded Client Recorded Date Recorded By Document 09/23/22 09:05 KRM [id number] 09/23/22 09:10 KRM Document 09/23/22 09:10 KRM [id number] 09/23/22 09:10 KRM 09/23/22 09/23/22 09:05 09:10 Home O2 Evaluation [Oxygen] -Test Phase Resting Exercise -Oxygen Delivery Room Air Room Air [Pulse Oximetry] -Pulse Oximetry (90-100 %) 90 89 L [Pulse Rate] -Pulse Rate (60-100 beats/min) 84 89 [Evaluation] -Activity Tolerance Good [Exercise] -Ambulation Distance (feet) 200 -Ambulation Distance (meters) 60.95 [Charges] -Treatment Charges O2 Evaluation - Inpatient
--- NOTE | 2022-09-23 09:41 | PM.DS ---
DS: Admitting Diagnosis Discharge Date 09/23/2022 Admitting Diagnosis Shortness of breath DS: Discharge Diagnosis Discharge Diagnosis (1) Congestive heart failure: Code(s): I50.9 - Heart failure, unspecified Status: Acute Assessment and Plan: ED[facility] narrative: Patient is a 67-year-old gentleman who presents the emergency department with chief complaint of shortness of breath.? Patient reports over the last 2 weeks has been having a productive cough is also been having increasing shortness of breath the patient recently took a trip to [place] and reports that he has been out of his medications.? The patient stated that as he has been getting [place] to the [place] his breathing is gotten progressively worse and has not been improving the patient does report that he has had a history of congestive heart failure in the past but reports this feels different.? The patient denies chest pain patient reports that is hard to talk in full sentences.? The patient does state that he has been wheezing a lot at home. 09/22/2022 interval history: Patient is 67-year-old male presented with history of congestive heart failure and COPD presented emergency department with complaint shortness of breath multifactorial most likely exacerbation of COPD as patient just stop smoking a month ago, congestive heart failure and suspicious of pneumonia, patient's being treated with methylprednisone and bronchodilator for COPD, patient with congestive heart failure etiology uncertain and patient BUN/creatinine was elevated however will gently diurese the patient with IV Lasix 20 mg daily today patient Scr is improving to 1.50 compared to 2.9 upon arrival, will monitor patient kidney function, patient is already started on ceftriaxone azithromycin for suspected pneumonia, patient states feel little better compared to when he arrived not as short of breath able to walk without getting short winded, will continue to monitor have PT OT evaluate the patient and further recommendation to follow. (2) Community acquired pneumonia: Code(s): J18.9 - Pneumonia, unspecified organism Status: Acute Assessment and Plan: Most likely patient has a community-acquired pneumonia patient is being treated with ceftriaxone and azithromycin will continue to monitor (3) Acute kidney injury: Code(s): N17.9 - Acute kidney failure, unspecified Status: Acute Assessment and Plan: Patient with acute on chronic kidney disease patient is being diuresed will monitor kidney function (4) Hypertension: Code(s): I10 - Essential (primary) hypertension Status: Acute Assessment and Plan: Will continue home regimen and monitor (5) COPD exacerbation: Code(s): J44.1 - Chronic obstructive pulmonary disease with (acute) exacerbation Status: Acute Assessment and Plan: Scheduled bronchodilators q.6 hours. Methylprednisolone 60 mg q.6 hours. Continue maintenance inhalers. (6) Tobacco abuse: Code(s): Z72.0 - Tobacco use Status: Acute Assessment and Plan: Smoking cessation is encouraged. He declines the need for nicotine patch. DS: Summary Hospital Course Reason for hospitalization: Shortness of breath Narrative: ED-HPI narrative: Patient is a 67-year-old gentleman who presents the emergency department with chief complaint of shortness of breath.? Patient reports over the last 2 weeks has been having a productive cough is also been having increasing shortness of breath the patient recently took a trip to [place] and reports that he has been out of his medications.? The patient stated that as he has been getting back to the [facility] his breathing is gotten progressively worse and has not been improving the patient does report that he has had a history of congestive heart failure in the past but reports this feels different.? The patient denies chest pain patient reports that is hard to talk in full sente
[2022-09-23] MEDS: FUROSEMIDE INJ 40 MG/4 ML VIAL 20 MG IV PUSH (09:59)
--- NOTE | 2022-09-23 11:41 | P.CDI_ITS ---
CDI Query Clarified Diagnosis Clarified Diagnosis: BNP elevated on 09/20/22 lab work. Documented history of CHF. CHF noted on the assessment and plan. Patient presented with complaints of shortness of breath. Patient receiving IV Lasix. Chest Xray from 09/20/22 notes pulmonary edema. Please specify type and acuity of heart failure if known. * Acute * Chronic * Acute on Chronic * Unknown * Systolic * Diastolic * Combined Systolic and Diastolic * Unknown <Jil Valente RN - Last Filed: 09/23/22 11:44> Provider Comments Patient presented with a shortness of breath and was treated with IV Lasix patient's symptoms did improve however etiology of congestive heart failure is unknown as cardiac echo showed preserved LV function with ejection fraction 65% and normal diastolic function <Stanislaw Sheikh MD - Last Filed: 10/06/22 16:32>
== END 2022-09-23 11:20 | disposition home or self-care (01) | DRG 291 ==
LOC: ANHED 06:26 → ANH2MED 08:41
PROVIDERS: Admitting Provider Internal Medicine; Emergency Provider Emergency Medicine; PCP Emergency Medicine; Visit Provider Family Medicine
DX: I11.0 Hypertensive heart disease with heart failure (principal); J18.9 Pneumonia, unspecified organism; J44.0 Chronic obstructive pulmonary disease with (acute) lower respiratory infection; J44.1 Chronic obstructive pulmonary disease with (acute) exacerbation; N17.9 Acute kidney failure, unspecified; I50.9 Heart failure, unspecified; I25.10 Atherosclerotic heart disease of native coronary artery without angina pectoris; E78.5 Hyperlipidemia, unspecified; K21.9 Gastro-esophageal reflux disease without esophagitis; F17.210 Nicotine dependence, cigarettes, uncomplicated; Z20.822 Contact with and (suspected) exposure to COVID-19; Z95.5 Presence of coronary angioplasty implant and graft
CPT/HCPCS: 36415; 36600; 71045; 80048; 80053; 81001; 82805; 83605; 83735; 83880; 84145; 84484; 85025; 85027; 85610; 85730; 87040; 87637; 93005; 93306; 94618; 94640; 96361; 96365; 96366; 96372; 96375; 96376; 99285; A9270; G0378; J0456; J0696; J1650; J1940; J2920; J2930; J7030

== ENCOUNTER 2022-10-21 09:35 | Outpatient (CLI) | payer MEDICARE, MEDICAID, SELFPAY ==
[2022-10-21 10:01] LABS: Hematocrit 45.5 % (42.0-52.0); Hemoglobin 14.7 g/dL (14.0-18.0); Mean Corpuscular HGB Conc 32.3 g/dl (32-36); Mean Corpuscular Hemoglobin 30.8 pg (26-34); Mean Corpuscular Volume 95.4 fl (80-100); Mean Platelet Volume 9.2 fl (7.4-10.4); Platelet Count Result 228 k/mm3 (150-375); Red Blood Count 4.77 M/mm3 (4.6-6.20); Red Cell Distribution Width 13.4 % (11.5-14.5); White Blood Count 6.4 K/mm3 (4.5-10.0)
[2022-10-21 10:11] LABS: Alanine Aminotransferase 24 U/L (6-50); Albumin Level 4.2 g/dL (3.5-5.1); Alkaline Phosphatase 85 U/L (38-126); Anion Gap 5 mmol/L (8-16); Aspartate Amino Transferase 24 U/L (17-59); Bilirubin,Total 0.5 mg/dL (0.2-1.3); Blood Urea Nitrogen 22 mg/dL (9-20); Calcium 8.7 mg/dL (8.4-10.2); Carbon Dioxide 30 mmol/L (22-30); Chloride 104 mmol/L (98-107); Cholesterol 174 mg/dL (0-200); Estimated Glomerular Filt Rate 51; Glucose 122 mg/dL (65-110); HDL Direct 53 mg/dL; Sodium 139 mmol/L (137-145); Triglycerides 95 mg/dL (<150)
[2022-10-21 10:11] LABS: Appearance Urine Clear (Clear); Bacteria Urine None Seen /hpf; Bilirubin Urine Negative (Negative); Blood Urine Trace (Negative); Color Urine Yellow (Yellow); Glucose Urine UA Negative (Negative); Ketones Urine Trace mg/dL (Negative); Leukocyte Esterase Ur Negative LEU/UL (NEGATIVE); Nitrate Urine Negative (Negative); Non Pathogenic Casts 0-2; Protein Urine 2+ mg/dL (Negative); Specific Grav Ur 1.026 (1.001-1.035); Spermatozoa Urine Present; Squamous Epithelial Cell Urine None seen /hpf (Few); WBC Urine 0-5 /hpf (0-3); pH Urine 5.5 (5.0-9.0)
[2022-10-21 10:13] LABS: Add Urine Microscopic? YES
[2022-10-21 10:22] LABS: LDL Cholesterol Direct 92 mg/dL
[2022-10-21 10:43] LABS: Prostate Specific Antigen 0.2 ng/mL (< OR = 4.0)
[2022-10-21 19:00] LABS: Creatinine Urine 272.1 mg/dL
[2022-10-21 19:25] LABS: MALB Creatinine Ratio 91.8 mg/g (0-30); Microalbumin Urine Random 249.7 mg/L (0-16.7)
== END 2022-10-21 09:36 | disposition home or self-care (01) ==
PROVIDERS: PCP Emergency Medicine; Visit Provider Emergency Medicine
DX: I10 Essential (primary) hypertension (principal)
CPT/HCPCS: 36415; 80053; 80061; 81001; 82043; 82306; 84153; 85027

== ENCOUNTER 2022-10-25 09:53 | Emergency (ER) | payer MEDICARE, MEDICAID, SELFPAY ==
[2022-10-25] VITALS (10 sets, daily range): BP systolic 133–156; BP diastolic 80–85; PULSE 57–83; RESP 14–24; TEMP 36.8; O2SAT 92–99
--- NOTE | ~2022-10-25 | CT_ITS ---
EXAMINATION:CT diagnostic chest w con DATE: 10/25/2022 12:02 INDICATION: Lung nodule. TECHNIQUE: Computed tomography (CT) of the chest was performed with 75 mL Omnipaque 350 intravenous c ontrast. Automated exposure control and iterative reconstruction technique were employed. The dose-le ngth product (DLP) was 247.27 mGy-cm. COMPARISON: Chest CT 12/20/2021 FINDINGS: There are tree-in-bud opacities involving all lobes. There are chronic mild groundglass opa cities with volume loss in the upper lobes. There is mild atelectasis in lingula and left lower lobe. No pleural effusion. The heart size is normal. There are coronary artery calcifications. No pericard ial effusion. There are no pathologically enlarged lymph nodes. There are changes of cholecystectomy. There is mild thoracic spondylosis. IMPRESSION: 1. Worsened diffuse lung disease, consistent with pneumonia. Reviewed, dictated and finalized at location A.
--- NOTE | ~2022-10-25 | XR_ITS ---
XR chest 2V 10/25/2022 10:42 Indication: Chest pain. Shortness of breath. Procedure: 2 view chest Comparison: 10/29/2021 Findings: Heart size normal. Nodular density left lower thorax. Right basilar atelectasis/scarring. T here are cholecystectomy clips. There is scoliosis. There is atherosclerosis. No focal pneumonia, adair ma, pleural effusion or pneumothorax. Impression: 1: Nodular density left lower thorax, most likely prominent nipple shadow. Recommend repeat PA view o f the chest with nipple markers. Reviewed, dictated and finalized at location B. Impression: 1: Nodular density left lower thorax, most likely prominent nipple shadow. Tl mmend repeat PA view of the chest with nipple markers.
--- NOTE | ~2022-10-25 | XR_ITS ---
EXAMINATION: XR chest 1V DATE: 10/25/2022 11:29 INDICATION: Lung nodule. TECHNIQUE: A single frontal view of the chest was obtained with nipple markers. COMPARISON: Chest 2 views 10/25/2022, chest CT 04/16/2022 FINDINGS: There is mild atelectasis in right lower lung zone. There is a nodule in lingula. No pleura l effusion or pneumothorax. The heart size is normal. Surgical clips in the right upper quadrant are likely from cholecystectomy. IMPRESSION: 1. Nodule in lingula, most likely infection or scarring. Noncontrast low-dose chest CT is recommended to exclude malignancy. Reviewed, dictated and finalized at location A. IMPRESSION: 1. Nodule in lingula, most likely infection or scarring. Noncontrast low-dose c hest CT is recommended to exclude malignancy.
--- NOTE | 2022-10-25 10:02 | ECG_ITS ---
Measurements Intervals [place] Rate: 64 P: 60 [place]: 168 QRS: 43 QRSD: 114 T: 36 QT: 366 QTc: 380 Interpretive Statements SINUS RHYTHM NORMAL ECG COMPARED TO ECG 09/20/2022 03:40:25 SINUS RHYTHM NOW PRESENT Electronically Signed On 10-25-2022 11:45:28 CDT by Rolf Fry D.O.
[2022-10-25 10:35] LABS: Hematocrit 42.7 % (42.0-52.0); Mean Corpuscular HGB Conc 32.8 g/dl (32-36); Mean Corpuscular Hemoglobin 30.9 pg (26-34); Mean Corpuscular Volume 94.3 fl (80-100); Mean Platelet Volume 9.1 fl (7.4-10.4); Platelet Count Result 236 k/mm3 (150-375); Red Blood Count 4.53 M/mm3 (4.6-6.20); Red Cell Distribution Width 13.5 % (11.5-14.5); White Blood Count 9.7 K/mm3 (4.5-10.0)
[2022-10-25 10:45] LABS: Alanine Aminotransferase 22 U/L (6-50); Albumin Level 3.9 g/dL (3.5-5.1); Alkaline Phosphatase 75 U/L (38-126); Anion Gap 6 mmol/L (8-16); Aspartate Amino Transferase 39 U/L (17-59); Bilirubin,Total 0.3 mg/dL (0.2-1.3); Blood Urea Nitrogen 24 mg/dL (9-20); Calcium 8.7 mg/dL (8.4-10.2); Carbon Dioxide 29 mmol/L (22-30); Chloride 105 mmol/L (98-107); Estimated CRCL calculation 50 ml/min; Estimated Glomerular Filt Rate > 60; Glucose 97 mg/dL (65-110); Potassium 3.5 mmol/L (3.4-5.0); Sodium 140 mmol/L (137-145)
--- NOTE | 2022-10-25 11:09 | ED.SOB ---
HPI - SOB/Dyspnea General Chief Complaint: Shortness of Breath/Dyspnea Stated Complaint: sob, sent from pmd Time Seen by Provider: 10/25/22 11:09 History of Present Illness HPI Narrative: Patient is a 69-year-old male with a history of COPD here due to shortness of breath x2 months. He has had a cough productive of yellow/white sputum. He is short of breath on exertion but it improves at rest. He has had no chest pain, fevers, chills, nausea, vomiting, leg swelling. Sent from Dr. Redding's office after he presented there this morning. Did receive a DuoNeb treatment and states it improved his dyspnea. Related Data Home Medications Medication Instructions Recorded Confirmed carvedilol 25 mg tablet 25 mg PO BID 11/04/19 09/20/22 lisinopril 10 mg tablet 20 mg PO DAILY 11/04/19 09/20/22 aspirin 81 mg PO DAILY 09/20/22 09/20/22 atorvastatin 20 mg tablet 40 mg PO DAILY 09/20/22 09/20/22 hydrochlorothiazide 12.5 mg PO DAILY 09/20/22 09/20/22 omeprazole 20 mg PO DAILY 09/20/22 09/20/22 Allergies Allergy/AdvReac Type Severity Reaction Status Date / Time No Known Allergies Allergy Unknown Verified 12/20/21 12:54 Review of Systems Review of Systems: Gen: Denies fevers or chills Eyes: Denies eye pain or visual change ENT: Denies congestion Respiratory: Denies shortness of breath or cough CV: Denies chest pain or palpitations GI: Denies abdominal pain nausea, emesis or diarrhea denies burning, urgency, frequency or hematuria Musculoskeletal: Denies back pain or muscle pain Neuro: Denies numbness, tingling, weakness or focal weakness Skin: Denies rash Except as documented, all other systems reviewed and negative [facility] Past Medical History Medical History Asthma Congestive heart failure Coronary artery disease Dyslipidemia Emphysema/COPD Gastroesophageal reflux disease Hypertension Tobacco abuse Surgical History Surgical History History of cardiac catheterization History of cholecystectomy History of coronary artery stent placement Family History Family History Other Cancer Hypertension Social History Social History Social History: Surrogate decision maker: Fadia Hirsch, spouse. Code status: Full code. Smoking packs per day: 0.25 Smoking cigarettes per day: 5.0 Smoking status: Former smoker Tobacco type: cigarettes Alcohol intake: former Drinks per week: 3 Substance use: never Lack of Transportation: No Lack of Food: Never True Current Housing: I Have Housing Concerned About Future Housing: YES Difficulty Paying Gas/Electric Bills: YES Difficulty Paying for Meds: No Currently Unemployed: No Education: Don't Know Difficulty w/ Childcare or Family Care: No Living arrangements: with family Occupation/Education: retired Spiritual care concerns: No Exam Narrative: APPEARANCE: Well appearing, no pain in distress, well-nourished. Head: Normocephalic and atraumatic. EYES: PERRLA/EOMI, conjunctivae clear NOSE: No nasal drainage EARS: External ear normal in appearance THROAT: Oropharynx is clear. Mucous membranes are moist. NECK: Supple. No adenopathy, no masses. RESPIRATORY: There is scant inspiratory and expiratory wheezing in the lower lobes. Patient is speaking in full sentences, no evidence of respiratory distress. CARDIOVASCULAR: Regular rate and rhythm without murmurs, rubs, or gallops. ABDOMINAL: Normoactive bowel sounds. Soft, nontender, nondistended. No rebound tenderness or guarding. MUSCULOSKELETAL: There is reproducible pain on the right lower rib area. NEURO: Normal speech. No focal neurologic deficits. SKIN: Skin is warm and dry. No rashes. PSYCHIATRIC: Normal affect/mood. Course Vital Si
[2022-10-25 11:34] LABS: Band Neutrophils Percent 5 % (0-6); Blastocytes 1 %; Monocytes Absolute Manual 0.38 K/mm3 (0.1-0.90); Monocytes Percent Manual 4 % (3-9); Neutrophils Absolute Manual 6.11 K/mm3 (1.3-6.7); Neutrophils Percent Manual 58 % (46-73); Total Cells Counted 100
[2022-10-25 11:35] LABS: Atypical Lymphocytes Present; Platelet Estimate Adequate (Adequate); Schistocytes None Seen (NORMAL)
[2022-10-25] MEDS: LEVALBUTEROL NEB 1.25 MG/3 ML INHALATION (11:43)
[2022-10-25] MEDS: IPRATROPIUM BR 0.02% INH SOLN 0.5 MG/2.5 ML VIAL INHALATION (11:43)
[2022-10-25] MEDS: methylPREDNISolone SOD SUCC 125 MG VIAL IV PUSH (11:44)
[2022-10-25 12:57] LABS: Appearance Urine Clear (Clear); Bacteria Urine None Seen /hpf; Bilirubin Urine Negative (Negative); Blood Urine Negative (Negative); Color Urine Yellow (Yellow); Glucose Urine UA Negative (Negative); Ketones Urine Negative (Negative); Leukocyte Esterase Ur Negative LEU/UL (Negative); Nitrate Urine Negative (Negative); Non Pathogenic Casts 0-2; Protein Urine 1+ mg/dL (Negative); RBC Urine 0-2 /hpf (0-2); Squamous Epithelial Cell Urine None seen /hpf (Few); WBC Urine 0-5 /hpf
[2022-10-25 13:00] LABS: Specific Grav Ur 1.069 (1.001-1.035)
[2022-10-25 13:01] LABS: Add Urine Microscopic? YES
[2022-10-25 14:18] LABS: Troponin I < 0.012 ng/mL (0.000-0.034)
== END 2022-10-25 15:02 | disposition home or self-care (01) ==
PROVIDERS: Emergency Medicine; Emergency Provider Physician Assistant; PCP Emergency Medicine
DX: J18.9 Pneumonia, unspecified organism (principal); J43.9 Emphysema, unspecified; J45.909 Unspecified asthma, uncomplicated; I50.9 Heart failure, unspecified; I11.0 Hypertensive heart disease with heart failure; E78.5 Hyperlipidemia, unspecified; K21.9 Gastro-esophageal reflux disease without esophagitis; Z95.5 Presence of coronary angioplasty implant and graft; Z90.49 Acquired absence of other specified parts of digestive tract; Z87.891 Personal history of nicotine dependence
CPT/HCPCS: 36415; 71045; 71046; 71260; 80053; 81001; 84484; 85025; 93005; 94640; 96374; 99284; J2930; Q9967

== ENCOUNTER 2022-12-27 07:42 | Outpatient (CLI) | payer MEDICARE, MEDICAID, SELFPAY ==
--- NOTE | ~2022-12-27 | XR_ITS ---
EXAMINATION: XR abdomen/kub 1V DATE: 12/27/2022 08:26 INDICATION: Chronic kidney disease. Right flank pain. TECHNIQUE: A supine view of the abdomen was obtained. COMPARISON: CT abdomen and pelvis 10/29/2021 FINDINGS: There are no dilated loops of bowel. There is a large volume of stool in the colon. Surgica l clips in the right upper quadrant are likely from cholecystectomy. Surgical clips overlie the pelvi s. There are phleboliths in the pelvis. IMPRESSION: 1. No visible urolithiasis. Reviewed, dictated and finalized at location A. IMPRESSION: 1. No visible urolithiasis.
[2022-12-27 08:42] LABS: Basophils Absolute Auto 0.1 K/mm3 (0.0-0.1); Basophils Percent Auto 0.5 % (0.2-1.2); Eosinophils Percent Auto 0.1 % (0-4.4); Hematocrit 46.6 % (42.0-52.0); Hemoglobin 15.2 g/dL (14.0-18.0); Immature Granulocyte Absolute 0.05 K/mm3 (0.00-0.031); Immature Granulocyte Percent A 0.5 % (0-0.5); Lymphocytes Absolute Auto 2.12 K/mm3 (0.9-3.2); Lymphocytes Percent Auto 21.7 % (18.3-44.2); Mean Corpuscular HGB Conc 32.6 g/dl (32-36); Mean Corpuscular Hemoglobin 30.5 pg (26-34); Mean Corpuscular Volume 93.6 fl (80-100); Mean Platelet Volume 9.9 fl (7.4-10.4); Monocytes Absolute Auto 0.8 K/mm3 (0.1-0.6); Monocytes Percent Auto 8.5 % (2.6-8.5); Neutrophils Absolute Auto 6.7 K/mm3 (1.3-6.7); Neutrophils Percent Auto 68.7 % (45.5-73.1); Platelet Count Result 208 k/mm3 (150-375); Red Blood Count 4.98 M/mm3 (4.6-6.20); Red Cell Distribution Width 14.3 % (11.5-14.5); White Blood Count 9.8 K/mm3 (4.5-10.0)
[2022-12-27 08:46] LABS: Appearance Urine Clear (Clear); Bacteria Urine None Seen /hpf; Bilirubin Urine Negative (Negative); Blood Urine Negative (Negative); Color Urine Yellow (Yellow); Glucose Urine UA Negative (Negative); Ketones Urine Negative (Negative); Leukocyte Esterase Ur Negative LEU/UL (NEGATIVE); Nitrate Urine Negative (Negative); Non Pathogenic Casts 0-2; Protein Urine Trace mg/dL (Negative); RBC Urine 0-2 /hpf (0-2); Specific Grav Ur 1.019 (1.001-1.035); Squamous Epithelial Cell Urine None seen /hpf (Few); Urobilinogen Urine 0.2 mg/dL (<2.0); WBC Urine 0-5 /hpf (0-3); pH Urine 5.5 (5.0-9.0)
[2022-12-27 08:49] LABS: Creatinine Urine 108.2 mg/dL; Total Protein Urine Random 22 mg/dL
[2022-12-27 08:57] LABS: Anion Gap 7 mmol/L (8-16); Blood Urea Nitrogen 19 mg/dL (9-20); Carbon Dioxide 30 mmol/L (22-30); Chloride 103 mmol/L (98-107); Estimated Glomerular Filt Rate > 60; Glucose 104 mg/dL (65-110); Potassium 3.6 mmol/L (3.4-5.0); Sodium 140 mmol/L (137-145)
[2022-12-27 08:57] LABS: Add Urine Microscopic? YES
[2022-12-30 15:09] LABS: Albumin 3.6 g/dL (3.8-4.8); Alpha 1 Globulin 0.3 g/dL (0.2-0.3); Alpha 2 Globulin 0.7 g/dL (0.5-0.9); Beta 1 Globulin 0.4 g/dL (0.4-0.6); Gamma Globulin 0.8 g/dL (0.8-1.7); Protein, Total 6.1 g/dL (6.1-8.1)
== END 2022-12-27 07:43 | disposition home or self-care (01) ==
PROVIDERS: PCP Emergency Medicine; Visit Provider Internal Medicine Nephrology
DX: N18.9 Chronic kidney disease, unspecified (principal); Z87.448 Personal history of other diseases of urinary system
CPT/HCPCS: 36415; 74018; 80048; 81001; 82570; 84155; 84156; 84165; 85025; 86334

== ENCOUNTER 2023-04-18 13:13 | Outpatient (CLI) | payer MEDICARE, MEDICAID, SELFPAY ==
[2023-04-18 13:48] LABS: Alanine Aminotransferase 23 U/L (6-50); Albumin Level 3.9 g/dL (3.5-5.1); Alkaline Phosphatase 74 U/L (38-126); Anion Gap 7 mmol/L (8-16); Aspartate Amino Transferase 27 U/L (17-59); Bilirubin,Total 0.4 mg/dL (0.2-1.3); Blood Urea Nitrogen 14 mg/dL (9-20); CRP < 0.5 mg/dL (<1.0); Calcium 8.8 mg/dL (8.4-10.2); Carbon Dioxide 25 mmol/L (22-30); Chloride 108 mmol/L (98-107); Cholesterol 205 mg/dL (0-200); Estimated Glomerular Filt Rate > 60; Glucose 106 mg/dL (65-110); HDL Direct 44 mg/dL; Potassium 4.3 mmol/L (3.4-5.0); Sodium 140 mmol/L (137-145); Triglycerides 303 mg/dL (<150)
[2023-04-18 13:57] LABS: LDL Cholesterol Direct 114 mg/dL
== END 2023-04-18 13:14 | disposition home or self-care (01) ==
PROVIDERS: PCP Emergency Medicine; Visit Provider Internal Medicine Cardiovascular Disease
DX: I10 Essential (primary) hypertension (principal); E78.5 Hyperlipidemia, unspecified; I25.810 Atherosclerosis of coronary artery bypass graft(s) without angina pectoris; J44.9 Chronic obstructive pulmonary disease, unspecified; Z13.6 Encounter for screening for cardiovascular disorders
CPT/HCPCS: 36415; 80053; 80061; 86140

== ENCOUNTER 2023-08-06 21:05 | Emergency (ER) | payer MEDICARE, MEDICAID, SELFPAY ==
[2023-08-06 21:20] VITALS: BP 99/67; PULSE 0; RESP 0
--- NOTE | 2023-08-06 21:28 | ED.GENADULT ---
HPI - General Adult General Chief complaint: Cardiac Arrest/CPR Stated complaint: v fib arrest Time Seen by Provider: 08/06/23 21:22 History of Present Illness HPI narrative: patient 68-year-old gentleman who presents emergency department with chief complaint of cardiac arrest. Patient was found laying on the side of a road unresponsive with an unknown down time. EMS was called and work the patient for approximately 20 minutes the patient did have a brief run VFib was cardioverted and then went asystole. ACLS protocols were initiated in the field and were continued upon arrival to the emergency department. History is limited due to the patient being unresponsive Related Data Home Medications Medication Instructions Recorded Confirmed carvedilol 25 mg tablet 25 mg PO BID 11/04/19 09/20/22 lisinopril 10 mg tablet 20 mg PO DAILY 11/04/19 09/20/22 aspirin 81 mg PO DAILY 09/20/22 09/20/22 atorvastatin 20 mg tablet 40 mg PO DAILY 09/20/22 09/20/22 hydrochlorothiazide 12.5 mg PO DAILY 09/20/22 09/20/22 omeprazole 20 mg PO DAILY 09/20/22 09/20/22 Allergies Allergy/AdvReac Type Severity Reaction Status Date / Time No Known Allergies Allergy Unknown Verified 12/20/21 12:54 Review of Systems Review of Systems: ROS unobtainable: Yes unobtainable due to endotracheal tube, unobtainable due to medical condition and unobtainable due to mental status PMFSH Past Medical History Medical History Asthma Congestive heart failure Coronary artery disease Dyslipidemia Emphysema/COPD Gastroesophageal reflux disease Hypertension Tobacco abuse Surgical History Surgical History History of cardiac catheterization History of cholecystectomy History of coronary artery stent placement Family History Family History Other Cancer Hypertension Social History Social History Social History: Surrogate decision maker: Fadia Torrey, spouse. Code status: Full code. Smoking packs per day: 0.25 Smoking cigarettes per day: 5.0 Smoking status: Former smoker Tobacco type: cigarettes Alcohol intake: former Drinks per week: 3 Substance use: never Lack of Transportation: No Lack of Food: Never True Current Housing: I Have Housing Concerned About Future Housing: YES Difficulty Paying Gas/Electric Bills: YES Difficulty Paying for Meds: No Currently Unemployed: No Education: Don't Know Difficulty w/ Childcare or Family Care: No Living arrangements: with family Occupation/Education: retired Spiritual care concerns: No Exam Narrative: GENERAL: ill-appearing, unresponsive HEAD: Normocephalic, atraumatic. EYES: pupils fixed and dilated ENT: Nares clear, no rhinorrhea or epistaxis. Mucous membranes moist. NECK: Supple. CHEST: Clear to auscultation with bag-valve ventilation. no spontaneous respiratory effort HEART: absent cardiac sounds no palpable fall ABDOMEN: Soft, nontender, nondistended, normal active bowel sounds. EXTREMITIES: no signs of trauma No edema. SKIN: cool, dry, no rash. NEURO: unresponsive pupils fixed and dilated. PSYCH: unable to obtain. Procedures Other Procedure Procedure 1: Other Procedure: ACLS protocols were initiated upon arrival and continued time of Medical Decision Making MDM Narrative Medical decision making narrative: patient was initially asystole by EMS and the did not have return of spontaneous circulation. The patient was intubated pre-hospital and Positive end-tidal CO2 monitoring. There was no return of spontaneous circulation after continuing ACLS. The patient is currently asystole the patient was pronounced at 9:20 a.m. Discharge Plan Discharge Clinical Impression: Card
--- NOTE | 2023-08-06 21:40 | PC.NURSE ---
pt to the ED via ems found unresponsive in the middle of the road according to ems. pt was down for an unwitnessed amount of time. prior to ED ems intubated pt with 7.5 tube, 25 at the lip, an IO in the LEFT leg, and 20G IV in the LEFT forearm. Prior to arrival pt blood glucose was 108 and provider did not request a repeat. prior to arrival ems did x3 round of Epinephrine, narcan, and 1 liter of lactated ringers. Each pulse check was asystole, Brannon compressions applied. no visible injury or active bleeding noted. pt arrived to ED at 2103. pulse check at 2106 asystole and 4th Epi. 2108 asystole, agonal breathing, and bicarb administered. At 2109 5th Epi administered. At 2110 asystole. At 2112 asystole and 6th epi administered. At 2114 asystole. At 2117 asystole and 7th Epi administered. At [address] Varner pronounces . pt pupils large and non-reactive. no visible chest rise and fall or any palpable pulse. pt had nitro, aspirin, cigarettes, a ski patrol, phone, wallet, and keys on them.
--- NOTE | 2023-08-06 23:56 | PC.NURSE ---
All lines, drains, and tubes removed by this RN per dairy powder mixer operator instruction. Family brought back to pt's room at this time.
--- NOTE | 2023-08-07 16:35 | PC.NURSE ---
Received call from pt's spouse, identifies self as Fadia Hirsch. States she wishes the patient go to [facility] in [place]. ([phone]). [employer]'s office contacted and given the information. OK to reach out to the home to retrieve the body. [facility] notified and given information as was available. States will reach out to the aircraft delivery checker's office and return call to [place] phone when they are enroute to the hospital to picking tech the body.
--- NOTE | 2023-08-07 17:02 | PC.NURSE ---
Received call from Nellie at [facility]. State that they haven't made contact with the spouse and that the time is almost regarding donation. States they are releasing the body. Made aware that the family picked [facility] in [place].
== END 2023-08-07 01:56 | disposition expired ==
PROVIDERS: Emergency Provider Emergency Medicine; PCP Emergency Medicine
DX: I46.9 Cardiac arrest, cause unspecified (principal); J43.9 Emphysema, unspecified; J45.909 Unspecified asthma, uncomplicated; I50.9 Heart failure, unspecified; I11.0 Hypertensive heart disease with heart failure; I25.10 Atherosclerotic heart disease of native coronary artery without angina pectoris; E78.5 Hyperlipidemia, unspecified; K21.9 Gastro-esophageal reflux disease without esophagitis; Z87.891 Personal history of nicotine dependence
CPT/HCPCS: 92950; 96374; 96375; 99285; J0171